=== PATIENT | female | born 1950 | race Caucasian/White ===

== ENCOUNTER 2023-11-10 20:45 | Emergency (ER) | payer MEDICARE, SELFPAY ==
--- NOTE | 2023-11-10 20:59 | ECG_ITS ---
Test Reason : CHEST PAIN Blood Pressure : / mmHG Vent. Rate : 055 BPM Atrial Rate : 055 BPM P-R Int : 208 ms QRS Dur : 112 ms QT Int : 484 ms P-R-T Axes : 032 -51 037 degrees QTc Int : 463 ms Sinus bradycardia Left anterior fascicular block Moderate voltage criteria for LVH, may be normal variant ( R in aVL , Ignacio product ) Nonspecific T wave abnormality Abnormal ECG No previous ECGs available Referred By: Generic ED Physician Electronically Signed By:Nicholas Bhagat
[2023-11-10 21:00] VITALS: BP 106/74; BP 108/65; PULSE 58; PULSE 80; RESP 16; TEMP 36.4; O2SAT 96; O2SAT 98; BMI 22.9
--- NOTE | 2023-11-10 21:04 | ED_ITS ---
HPI - Chest Pain General Chief Complaint: Chest Pain Stated Complaint: FROM SNF, CHEST PAIN XFEW HOURS Time Seen by Provider: 11/10/23 21:04 History of Present Illness HPI narrative: The patient is a 73-year-old woman who lives at [facility] dementia unit. The patient apparently complained of chest pain earlier and requested to come to the hospital. At the time that I evaluated the patient she told me that she really could not remember what was happening earlier. The patient has a history of dementia in his clearly poorly oriented. She could not tell me where she lives. She could not tell me how old she is. She currently has no chest pain. No shortness of breath. No abdominal pain. No headache. Related Data Home Medications Medication Instructions Recorded Confirmed amlodipine 5 mg tablet 5 mg PO DAILY 11/10/23 11/10/23 calcium carbonate 600 mg-vitamin 2 cap PO BID 11/10/23 11/10/23 D3 5 mcg (200 unit) capsule (Calcium 600 + D(3)) donepezil 10 mg tablet (Aricept) 10 mg PO BEDTIME 11/10/23 11/10/23 folic acid 1 mg tablet 1 mg PO DAILY 11/10/23 11/10/23 melatonin 3 mg tablet 3 mg PO BEDTIME PRN Insomnia 11/10/23 11/10/23 methotrexate sodium 2.5 mg tablet 10 mg PO TU 11/10/23 11/10/23 multivitamin with minerals 1 tab PO DAILY 11/10/23 11/10/23 polyethylene glycol 3350 17 gram 17 g PO DAILY PRN Constipation 11/10/23 11/10/23 oral powder packet sennosides 8.6 mg tablet (senna) 17.2 mg PO DAILY 11/10/23 11/10/23 white petrolatum 41 % topical 1 appl topical BID 11/10/23 11/10/23 ointment (Aquaphor Healing) Allergies Allergy/AdvReac Type Severity Reaction Status Date / Time No Known Allergies Allergy Verified 11/10/23 20:58 Review of Systems 2 Review of Systems: Yes all other systems are reviewed and are negative [facility] Social History Social History Advance Directives: Yes Advance Directives Information Provided: No Advance Directives on File: No Physical Exam 2 Vital Signs: Vital Signs: Last Vital Signs Temp 97.6 F 11/10/23 21:00 Pulse 58 11/10/23 21:00 Resp 16 11/10/23 21:00 BP 108/65 11/10/23 21:00 Pulse Ox 96 11/10/23 21:00 O2 Del Method Room Air 11/10/23 21:00 BMI result Body Mass Index 22.9 Const: Other: The patient is a 73-year-old female who lives at a local dementia unit. She is awake and alert. She is pleasant and cooperative. She is very poorly oriented and cannot tell me where she lives. She can not tell me her age. She does not seem in any distress. HEENT: Other: Symmetrical. Mucous membranes moist. Eyes: Other: Pupils are round equal, conjunctivae clear, extraocular movements intact Neck: Other: No JVD Resp: Effort & Inspection: normal respiratory effort Auscultation: clear to auscultation bilaterally Cardio: Rate: regular rate Rhythm: regular rhythm Heart sounds: S1 normal heart sound present and S2 normal heart sound present GI: Other: Soft and nontender Skin: Other: Skin is dry and unremarkable Neuro: Other: The patient is awake and alert. She is poorly oriented in a manner consistent with dementia. She is quite talkative. Her speech is clear. Her face is symmetrical. Eye movements intact. She moves her extremities symmetrically. Exam is nonfocal. Extrem: Other: No calf swelling or tenderness Medical Decision Making Medical Decision Making MDM Narrative: The patient is a 73-year-old female with a history of dementia who lives at a dementia unit at a [place] [facility]. She was sent to the emergency room because she had been complaining of chest pain. However once she was here she was not experiencing chest pain and she could not remember anything about her complaints. Clinically the patient looks well here. Her EKG shows sinus bradycardia without definite acute ischemic changes. Troponins are undetectable. Other labs are unremarkable. She was observed for several hours without any new complaints of chest pain or other significant symptoms. She was resting peacefully. Ultimately she was returned to her [place] [facility] [place] Lab Data 11/10/23 21:00 11/10/23 21:00 Labs: Lab Results 11/10/23 11/10/23 11/11/23 Range/Units 21:00 23:12 00:14 WBC 4.6 L (4.8-10.8) X10*3/uL RBC 3.89 L (4.20-5.50) X10*6/uL Hgb 12.5 (12.0-16.0) g/dl Hct 37.4 (37.0-47.0) % MCV 96.1 (80.0-98.0) fL MCH 32.1 (27.0-33.0) pg MCHC 33.4 (31.0-35.0) g/dl RDW 14.8 (11.0-16.0) % Plt Count 81 L (160-400) X10*3/uL MPV 12.6 H (9.4-12.3) fL Immature Gran % (Auto) 0.2 (0.0-0.4) % Neut % (Auto) 54.0 (45-73) % Lymph % (Auto) 28.5 (20-40) % [place] % (Auto) 12.5 H (2-11) % Eos % (Auto) 3.9 (0-4) % Baso % (Auto) 0.9 (0-2) % Lymph # (Auto) 1.3 (1.2-4.9) X10*3/uL [place] # (Auto) 0.6 (0.1-1.2) X10*3/uL Eos # (Auto) 0.2 (0.0-0.4) X10*3/uL Baso # (Auto) 0.0 (0.0-0.2) X10*3/uL Abs Immat Gran (auto) 0.01 (0.00-0.03) X10*3/uL Absolute Neuts (auto) 2.5 (2.0-8.3) x10*3/uL Absolute Nucleated RBC 0.000 (0.0-0.012) X10*3/uL Nucleated RBC % (auto) 0.0 (0.0-0.2) /100WBC Smear Tech's Comments VERIFIED Sodium 136 (135-145) mmol/L Potassium 4.8 (3.3-5.1) mmol/L Chloride 109 H (96-108) mmol/L Carbon Dioxide 20 L (22-29) mmol/L Anion Gap 12 (12-20) BUN 21 H (9-16) mg/dL Creatinine 0.94 (0.5-1.4) mg/dL Estim Creat Clear Calc 42.8 Estimated GFR 58 Random Glucose 92 (60-115) mg/dL Calcium 8.7 (8.4-10.2) mg/dL Troponin I High Sens 7.3 6.3 (<3.5-17.0) ng/L Influenza Type A (PCR) NEGATIVE (Negative) Influenza Type B (PCR) NEGATIVE (Negative) RSV RNA Qual (PCR) NEGATIVE (Negative) SARS-CoV-2 RNA (RT-PCR) NEGATIVE (Negative) Independent Interpretation I performed an independent interpretation of an: EKG Interpretation: EKG at 21:03 shows sinus bradycardia at 55 beats per minute. There is a left anterior fascicular block. No definite acute ischemic changes. Discharge Plan Discharge Clinical Impression: Chest pain, Dementia Patient Disposition: [facility] Additional Instructions: Testing in the emergency room reveals no signs of heart attack or other concerning process. No explanation for the patient's chest pain was apparent. No dangerous process identified. Please continue regular medications. Please follow up with her regular doctor. Return to the emergency room if worse. Prescriptions: No Action sennosides [senna] 8.6 mg Tablet 17.2 mg PO DAILY polyethylene glycol 3350 17 gram Powder In Packet 17 g PO DAILY PRN (Reason: Constipation) donepezil [Aricept] 10 mg Tablet 10 mg PO BEDTIME melatonin 3 mg Tablet 3 mg PO BEDTIME PRN (Reason: Insomnia) amlodipine 5 mg Tablet 5 mg PO DAILY methotrexate sodium 2.5 mg Tablet 10 mg PO TU folic acid 1 mg Tablet 1 mg PO DAILY multivitamin with minerals Tablet 1 tab PO DAILY Aquaphor Healing 41 % Ointment 1 appl TOPICAL BID Calcium 600 + D(3) 600 mg-5 mcg (200 unit) Capsule 2 cap PO BID Referrals: GERALDINE MENDEZ [Primary Care Provider] - (Chest pain, dementia)
[2023-11-10 21:05] LABS: Basophils Percent Auto 0.9 % (0-2); Eosinophils Absolute Auto 0.2 X10*3/uL (0.0-0.4); Eosinophils Percent Auto 3.9 % (0-4); Hematocrit 37.4 % (37.0-47.0); Hemoglobin 12.5 g/dl (12.0-16.0); Imm Gran Abs Auto 0.01 X10*3/uL (0.00-0.03); Imm Gran Pct Auto 0.2 % (0.0-0.4); Lymphocytes Absolute Auto 1.3 X10*3/uL (1.2-4.9); Lymphocytes Percent Auto 28.5 % (20-40); Mean Corpuscular HGB Conc 33.4 g/dl (31.0-35.0); Mean Corpuscular Hemoglobin 32.1 pg (27.0-33.0); Mean Corpuscular Volume 96.1 fL (80.0-98.0); Mean Platelet Volume 12.6 fL (9.4-12.3); Monocytes Absolute Auto 0.6 X10*3/uL (0.1-1.2); Monocytes Percent Auto 12.5 % (2-11); Neutrophils Absolute Auto 2.5 x10*3/uL (2.0-8.3); Red Blood Count 3.89 X10*6/uL (4.20-5.50); Red Cell Distribution Width 14.8 % (11.0-16.0); White Blood Count 4.6 X10*3/uL (4.8-10.8)
[2023-11-10 21:06] LABS: MANUAL DIFF FLAG SCAN; Platelet Count 81 X10*3/uL (160-400)
--- NOTE | 2023-11-10 21:16 | PHA.MEDREC ---
Pharmacy Consult ? Medication Reconciliation Pharmacy has completed the medication reconciliation. Patient from [facility] with med list. Nancy Rubio, NelsyD
[2023-11-10 21:20] LABS: Anion Gap 12 (12-20); Blood Urea Nitrogen 21 mg/dL (9-16); Calcium 8.7 mg/dL (8.4-10.2); Carbon Dioxide 20 mmol/L (22-29); Chloride 109 mmol/L (96-108); Creatinine Clr Calc Pharmacy 42.8; Estimated Glomerular Filt Rate 58; Glucose Random 92 mg/dL (60-115); Potassium 4.8 mmol/L (3.3-5.1); Sodium 136 mmol/L (135-145)
[2023-11-10 21:27] LABS: Troponin-I High Sensitivity 7.3 ng/L (<3.5-17.0)
[2023-11-10 21:40] LABS: SLIDE REVIEW VERIFIED
[2023-11-10 23:54] LABS: Influenza A PCR NEGATIVE (Negative); Influenza B PCR NEGATIVE (Negative); Resp Syncy Virus RNA Qual PCR NEGATIVE (Negative); SARS COV2 PCR INHOUSE NEGATIVE (Negative)
[2023-11-11 00:39] LABS: Troponin-I High Sensitivity 6.3 ng/L (<3.5-17.0)
--- NOTE | 2023-11-11 02:20 | MHC.EDTECH ---
CALL OUT TO [facility] AT 0220 TO BOOK TRANSPORT FOR PT BACK TO [facility], ESTIMATED ETA GIVEN WAS 0250
[2023-11-11 02:55] VITALS: BP 136/73; PULSE 52; RESP 14; TEMP 36.4; O2SAT 96
== END 2023-11-11 02:00 | disposition skilled nursing facility (03) ==
PROVIDERS: Emergency Provider Emergency Medicine; PCP Emergency Medicine
DX: R07.9 Chest pain, unspecified (principal); F03.90 Unspecified dementia, unspecified severity, without behavioral disturbance, psychotic disturbance, mood disturbance, and anxiety; Z11.52 Encounter for screening for COVID-19; Z20.828 Contact with and (suspected) exposure to other viral communicable diseases
CPT/HCPCS: 0241U; 36415; 80048; 84484; 85025; 93005; 99284

== ENCOUNTER → 2023-11-10 20:59 | Outpatient (BNV) | payer MEDICARE, SELFPAY | PROVIDERS: Emergency Provider Emergency Medicine; PCP Emergency Medicine; Visit Provider Internal Medicine Cardiovascular Disease | DX: R00.1 Bradycardia, unspecified (principal) | CPT/HCPCS: 93010 ==

== ENCOUNTER 2024-02-08 13:22 | Inpatient (IN) | payer MEDICARE, SELFPAY ==
--- NOTE | ~2024-02-08 | XR_ITS ---
EXAMINATION: XR CHEST CLINICAL INFORMATION: Weakness COMPARISON: None available. TECHNIQUE: Frontal view of the chest was obtained. FINDINGS: There is slight prominence of the right hilar area likely reflects prominent central pulmonary vasculature. Similar but less prominent prominence of the left Lungs otherwise clear. Cardiomediastinal silhouette normal. Surgical clips in the right upper quadrant. Bone and soft tissues otherwise unremarkable XR/XR chest 1V IMPRESSION: Prominence of the right hilar area likely reflects prominent central pulmonary vasculature. Similar but less prominent prominence of the left lung. Findings most likely reflects mild pulmonary vascular congestion. Cannot exclude right infrahilar mass or consolidation consider repeat radiograph with PA and lateral radiograph to further evaluate
--- NOTE | 2024-02-08 13:32 | ED_ITS ---
HPI - General Adult General Chief complaint: Altered Mental Status Stated complaint: LETHARGY S/P GI BUG PER EMS Time Seen by Provider: 02/08/24 13:32 History of Present Illness ED Provider: Dandy WHITING narrative: The patient is a 74-year-old female who lives on the dementia unit of a local skilled nursing. Apparently she had 3 or 4 days of diarrhea that ended 2 or 3 days ago. Since that time she has been much less alert than usual. Facility has been trying to manage this for a couple of days. She would lab work 2 days ago that showed a mildly elevated sodium. She was given an IV and was given IV fluids. Today she was not getting better and so she was sent to the emergency room. There is no report of any fever. Related Data Home Medications ?Medication ?Instructions ?Recorded ?Confirmed amlodipine 5 mg tablet 5 mg PO DAILY@0800 11/10/23 02/08/24 calcium carbonate 600 mg-vitamin 2 cap PO BID 11/10/23 02/08/24 D3 5 mcg (200 unit) capsule (Calcium 600 + D(3)) donepezil 10 mg tablet (Aricept) 10 mg PO BEDTIME 11/10/23 02/08/24 folic acid 1 mg tablet 1 mg PO SUMOWETHFRSA@0800 11/10/23 02/08/24 melatonin 3 mg tablet 3 mg PO BEDTIME PRN Insomnia 11/10/23 02/08/24 methotrexate sodium 2.5 mg tablet 10 mg PO TU@0800 11/10/23 02/08/24 multivitamin with minerals 1 tab PO DAILY@0800 11/10/23 02/08/24 polyethylene glycol 3350 17 gram 17 g PO DAILY PRN Constipation 11/10/23 02/08/24 oral powder packet sennosides 8.6 mg tablet (senna) 17.2 mg PO DAILY@0800 11/10/23 02/08/24 white petrolatum 41 % topical 1 appl topical BID PRN itchyness 11/10/23 02/08/24 ointment (Aquaphor Healing) acetaminophen 325 mg tablet 650 mg PO DAILY 02/08/24 02/08/24 bisacodyl 10 mg rectal suppository 10 mg AR DAILY PRN milk of 02/08/24 02/08/24 magnesia not effective calcitriol 3 mcg/gram topical 1 appl topical BID Psoriasis 02/08/24 02/08/24 ointment hydrocortisone 2.5 % topical 1 appl topical DAILY PRN psoriasis 02/08/24 02/08/24 ointment loperamide 2 mg capsule 2 mg PO Q6H PRN Diarrhea 02/08/24 02/08/24 magnesium hydroxide 400 mg/5 mL 30 ml PO DAILY PRN Constipation/ 02/08/24 02/08/24 oral suspension (Milk of Magnesia) No Bm in3 days sodium phosphates 19 gram-7 118 ml AR DAILY PRN Ducolax not 02/08/24 02/08/24 gram/118 mL enema (Fleet Enema) effective trazodone 50 mg tablet 25 mg PO BID PRN Anxiety 02/08/24 02/08/24 trazodone 50 mg tablet 25 mg PO TID@0800,1400,199902/08/24 02/08/24 Allergies Allergy/AdvReac Type Severity Reaction Status Date / Time No Known Allergies Allergy Verified 02/08/24 13:38 Review of Systems 2 Review of Systems: Yes Unobtainable due to mental status [facility] Social History Social History Patient Tobacco Use Status: Tobacco use Unknown Smoked in Last 30 Days: No Use of substances other than those prescribed or required for medical reasons: No Advance Directives: No Nutrition Risks: Acute nausea or vomiting x1 week Physical Exam ED Vital Signs: Vital Signs - 24 hr 02/08/24 13:34 Temperature 99.6 F Pulse Rate 80 Respiratory Rate 16 Blood Pressure 151/69 H Pulse Oximetry 97 Oxygen Delivery Method Room Air BMI result Body Mass Index 23.4 Const Other: The patient is a chronically ill-appearing 74-year-old woman who seems very withdrawn. She responds to loud verbal stimuli. She seems demented. She does not seem in any respiratory distress. She does not seem in pain. HENMT Other: No facial asymmetry. Mucous membranes slightly dry. Eyes Other: Pupils are round equal, conjunctivae clear Neck Other: Neck is supple Resp Effort & Inspection: normal respiratory effort Auscultation: clear to auscultation bilaterally Cardio Rate: regular rate Rhythm: regular rhythm Heart sounds: S1 normal heart sound present and S2 normal heart sound present GI Other: Abdomen is soft and without apparent tenderness. Skin Other: Skin is dry Neuro Other: The patient seems somnolent. Pupils are round equal. She grimaces to noxious stimuli. She is not verbal. She has symmetrical tone Extrem Other: No pitting edema. Medications Administered Generic Name Dose Route Start Last Admin Trade Name Freq PRN Reason Stop Dose Admin Enoxaparin Sodium 40 mg 02/08/24 18:00 02/08/24 19:40 Enoxaparin Sodium 40 Mg/0.4 Ml Syringe SUBCUT 40 mg Q24H YOUSIF Administration Dextrose 1,000 mls @ 125 mls/hr 02/08/24 16:30 02/08/24 16:45 D5w IVCONT 125 mls/hr .Q8H YOUSIF Administration Discontinued Medications Generic Name Dose Route Start Last Admin Trade Name Freq PRN Reason Stop Dose Admin Sodium Chloride 1,000 mls @ 999 mls/hr 02/08/24 14:30 02/08/24 17:38 Ns IV 02/08/24 15:30 Infused .Q1H1M YOUSIF Infusion Medical Decision Making Medical Decision Making [facility] Narrative: The patient is a 74-year-old woman who lives at a dementia unit. I spoke to a nurse on the unit who told me that there is a MOLST form indicating the patient is DNR/DNI that they would be faxing over. Her labs show an elevated hemoglobin consistent with dehydration and hemo concentration. Sodium is elevated at 162 which I suspect is secondary to dehydration. The patient's renal function is also consistent with acute dehydration. The patient was given a L of normal saline in the emergency department and will be admitted to the hospitalist service for further management. She has an abnormal troponin that I think is a stress reaction rather than an acute coronary syndrome. Lab Data 02/08/24 14:16 02/08/24 14:16 Labs: Lab Results 02/08/24 02/08/24 Range/Units 14:16 14:19 WBC 7.6 (4.8-10.8) X10*3/uL RBC 4.81 D (4.20-5.50) X10*6/uL Hgb 15.9 D (12.0-16.0) g/dl Hct 48.5 H D (37.0-47.0) % MCV 100.8 H (80.0-98.0) fL MCH 33.1 H (27.0-33.0) pg MCHC 32.8 (31.0-35.0) g/dl RDW 15.9 (11.0-16.0) % Plt Count 65 L (160-400) X10*3/uL MPV 12.4 H (9.4-12.3) fL Immature Gran % (Auto) 0.8 H (0.0-0.4) % Neut % (Auto) 71.5 (45-73) % Lymph % (Auto) 18.1 L (20-40) % [place] % (Auto) 8.5 (2-11) % Eos % (Auto) 0.7 (0-4) % Baso % (Auto) 0.4 (0-2) % Lymph # (Auto) 1.4 (1.2-4.9) X10*3/uL [place] # (Auto) 0.6 (0.1-1.2) X10*3/uL Eos # (Auto) 0.1 (0.0-0.4) X10*3/uL Baso # (Auto) 0.0 (0.0-0.2) X10*3/uL Abs Immat Gran (auto) 0.06 H (0.00-0.03) X10*3/uL Absolute Neuts (auto) 5.4 (2.0-8.3) x10*3/uL Absolute Nucleated RBC 0.000 (0.0-0.012) X10*3/uL Nucleated RBC % (auto) 0.0 (0.0-0.2) /100WBC VBG pH 7.50 H (7.32-7.43) VBG pCO2 26 mmHg VBG pO2 73 mmHg VBG HCO3 21 L (22-26) mmol/L VBG O2 Saturation 94.0 % VBG Base Excess -0.4 mmol/L Sodium 162 H* (135-145) mmol/L Potassium 3.7 D (3.3-5.1) mmol/L Chloride 132 H D (96-108) mmol/L Carbon Dioxide 20 L (22-29) mmol/L Anion Gap 14 (12-20) BUN 29 H (9-16) mg/dL Creatinine 1.24 (0.5-1.4) mg/dL Estim Creat Clear Calc 33.3 Estimated GFR 42 Random Glucose 97 (60-115) mg/dL Calcium 9.6 D (8.4-10.2) mg/dL Magnesium 2.0 (1.6-2.6) mg/dL Total Bilirubin 2.4 H (0.0-1.0) mg/dL Direct Bilirubin 0.7 H (0.0-0.5) mg/dL AST 45 H (5-31) U/L ALT 30 (0-31) U/L Alkaline Phosphatase 76 (39-117) U/L Troponin I High Sens 94.1 H* D (<3.5-17.0) ng/L C-Reactive Protein 0.26 (< or = 0.50) mg/dL B-Natriuretic Peptide 187 H (<100) pg/mL Total Protein 7.8 (6.5-8.0) g/dL Albumin 2.6 L (3.5-5.0) g/dL Lipase 54 (8-78) U/L Influenza Type A (PCR) NEGATIVE (Negative) Influenza Type B (PCR) NEGATIVE (Negative) RSV RNA Qual (PCR) NEGATIVE (Negative) SARS-CoV-2 RNA (RT-PCR) NEGATIVE (Negative) Discharge Plan Discharge Clinical Impression: Hypernatremia, Dementia, Acute dehydration Patient Disposition: Admitted As Inpatient Interventions: Admission Worksheet (ED) Last Done: 02/08/24 17:53 Discharge Date/Time: 02/08/24 20:25
[2024-02-08 13:34] VITALS: BP 146/74; BP 151/69; PULSE 70; PULSE 80; RESP 16; TEMP 37.6; O2SAT 97; BMI 23.4
--- NOTE | 2024-02-08 13:43 | ECG_ITS ---
Test Reason : HYPOKALEMIA Blood Pressure : / mmHG Vent. Rate : 079 BPM Atrial Rate : 079 BPM P-R Int : 144 ms QRS Dur : 096 ms QT Int : 388 ms P-R-T Axes : 004 -67 107 degrees QTc Int : 444 ms Normal sinus rhythm Left anterior fascicular block Left ventricular hypertrophy with repolarization abnormality ( R in aVL , Ignacio product , Romhilt-Krause ) Cannot rule out Septal infarct , age undetermined Abnormal ECG When compared with ECG of 10-NOV-2023 21:03, Minimal criteria for Septal infarct are now Present T wave inversion now evident in Anterolateral leads Referred By: Delfino Dorman Electronically Signed By:NEW MCGHEE MD
[2024-02-08 14:22] LABS: MANUAL DIFF FLAG NO
[2024-02-08 14:24] LABS: Basophils Percent Auto 0.4 % (0-2); Eosinophils Absolute Auto 0.1 X10*3/uL (0.0-0.4); Eosinophils Percent Auto 0.7 % (0-4); Hematocrit 48.5 % (37.0-47.0); Hemoglobin 15.9 g/dl (12.0-16.0); Imm Gran Abs Auto 0.06 X10*3/uL (0.00-0.03); Imm Gran Pct Auto 0.8 % (0.0-0.4); Lymphocytes Absolute Auto 1.4 X10*3/uL (1.2-4.9); Lymphocytes Percent Auto 18.1 % (20-40); Mean Corpuscular HGB Conc 32.8 g/dl (31.0-35.0); Mean Corpuscular Hemoglobin 33.1 pg (27.0-33.0); Mean Corpuscular Volume 100.8 fL (80.0-98.0); Mean Platelet Volume 12.4 fL (9.4-12.3); Monocytes Absolute Auto 0.6 X10*3/uL (0.1-1.2); Monocytes Percent Auto 8.5 % (2-11); Neutrophils Absolute Auto 5.4 x10*3/uL (2.0-8.3); Neutrophils Percent Auto 71.5 % (45-73); Platelet Count 65 X10*3/uL (160-400); Red Blood Count 4.81 X10*6/uL (4.20-5.50); Red Cell Distribution Width 15.9 % (11.0-16.0); White Blood Count 7.6 X10*3/uL (4.8-10.8)
[2024-02-08 14:26] LABS: Venous Blood Gas Refer to POC result
[2024-02-08 14:27] LABS: VBG Base Excess -0.4 mmol/L; VBG HCO3 21 mmol/L (22-26); VBG pCO2 26 mmHg; VBG pO2 73 mmHg
[2024-02-08 14:40] LABS: Alanine Aminotransferase 30 U/L (0-31); Albumin Level 2.6 g/dL (3.5-5.0); Alkaline Phosphatase 76 U/L (39-117); Aspartate Amino Transferase 45 U/L (5-31); Bilirubin Direct 0.7 mg/dL (0.0-0.5); Bilirubin Total 2.4 mg/dL (0.0-1.0); Blood Urea Nitrogen 29 mg/dL (9-16); C Reactive Protein 0.26 mg/dL (< or = 0.50); Calcium 9.6 mg/dL (8.4-10.2); Creatinine Clr Calc Pharmacy 33.3; Estimated Glomerular Filt Rate 42; Glucose Random 97 mg/dL (60-115); Lipase 54 U/L (8-78); Total Protein 7.8 g/dL (6.5-8.0)
[2024-02-08 14:44] LABS: B Type Natriuretic Peptide 187 pg/mL (<100)
[2024-02-08] MEDS: 0.9 % Sodium Chloride 1,000 ML 999 ML IV (14:51)
[2024-02-08 14:55] LABS: Anion Gap 14 (12-20); Carbon Dioxide 20 mmol/L (22-29); Chloride 132 mmol/L (96-108); Potassium 3.7 mmol/L (3.3-5.1); Sodium 162 mmol/L (135-145)
[2024-02-08 14:57] LABS: Troponin-I High Sensitivity 94.1 ng/L (<3.5-17.0)
[2024-02-08 14:59] LABS: Influenza A PCR NEGATIVE (Negative); Influenza B PCR NEGATIVE (Negative); Resp Syncy Virus RNA Qual PCR NEGATIVE (Negative); SARS COV2 PCR INHOUSE NEGATIVE (Negative)
[2024-02-08 16:13] VITALS: BP 157/86; PULSE 84; RESP 19; O2SAT 98
--- NOTE | 2024-02-08 16:18 | PM.IMHP ---
History of Present Illness Date of Service: 02/08/24 Chief Complaint: Mental status changes All information gleaned from long-term transfer sheet. 74-year-old female local resident of [facility] with a history of dementia presents after 3 or 4 days of diarrhea that stopped approximately 2 days ago. Over that time she became more confused and ultimately lethargic prompting transfer into [facility]. Initial labs significant for sodium of 162 and a chloride of 132. She received a L of normal saline in the emergency room and request for admission was undertaken. Review of Systems Review of Systems: Unable to obtain [facility] Social History Smoked in Last 30 Days: No Use of substances other than those prescribed or required for medical reasons: No Advance Directives: No Meds Allergies Allergy/AdvReac Type Severity Reaction Status Date / Time No Known Allergies Allergy Verified 02/08/24 13:38 Active Medications: Current Medications Acetaminophen (Acetaminophen 325 Mg Tablet) 650 mg PO Q6H PRN PRN Reason: Pain, Mild (Pain Scale 1-3), fever or headache Calcium Carbonate (Calcium Carbonate 750 Mg Tab.Chew) 750 mg PO Q4H PRN PRN Reason: Heartburn Enoxaparin Sodium (Enoxaparin Sodium 40 Mg/0.4 Ml Syringe) 40 mg SUBCUT Q24H [facility] Magnesium Hydroxide (Milk Of Magnesia 30 Ml Oral.Susp) 30 ml PO DAILY PRN PRN Reason: Constipation Melatonin (Melatonin 3 Mg Tablet) 6 mg PO BEDTIME PRN PRN Reason: Insomnia Ondansetron HCl (Ondansetron Hcl 4 Mg/2 Ml Vial) 4 mg IVPUSH Q8H PRN PRN Reason: Nausea and Vomiting Sodium Chloride (0.9 % Sodium Chloride Flush 3 Ml Syringe) 3 ml IVFLUSH QSHIFT [facility] Home Medications ?Medication ?Instructions ?Recorded ?Confirmed ?Last Taken ?Type amlodipine 5 mg tablet 5 mg PO DAILY 11/10/23 11/10/23 Unknown History calcium carbonate 600 mg-vitamin 2 cap PO BID 11/10/23 11/10/23 Unknown History D3 5 mcg (200 unit) capsule (Calcium 600 + D(3)) donepezil 10 mg tablet (Aricept) 10 mg PO BEDTIME 11/10/23 11/10/23 Unknown History folic acid 1 mg tablet 1 mg PO DAILY 11/10/23 11/10/23 Unknown History melatonin 3 mg tablet 3 mg PO BEDTIME PRN Insomnia 11/10/23 11/10/23 Unknown History methotrexate sodium 2.5 mg tablet 10 mg PO TU 11/10/23 11/10/23 Unknown History multivitamin with minerals 1 tab PO DAILY 11/10/23 11/10/23 Unknown History polyethylene glycol 3350 17 gram 17 g PO DAILY PRN Constipation 11/10/23 11/10/23 Unknown History oral powder packet sennosides 8.6 mg tablet (senna) 17.2 mg PO DAILY 11/10/23 11/10/23 Unknown History white petrolatum 41 % topical 1 appl topical BID 11/10/23 11/10/23 Unknown History ointment (Aquaphor Healing) Physical Exam Vital Signs and Narrative: Vital Signs: Last Vital Signs Temp 99.6 F 02/08/24 13:34 Pulse 84 02/08/24 16:13 Resp 19 02/08/24 16:13 BP 157/86 H 02/08/24 16:13 Pulse Ox 98 02/08/24 16:13 O2 Del Method Room Air 02/08/24 16:13 BMI result Body Mass Index 23.4 Const: Other: Somnolent; response to mild stimuli Resp: Other: Clear to auscultation bilaterally no rales rhonchi or wheezes Cardio: Other: No S4; positive S1-S2; no S3 murmurs rubs or gallops GI: Other: Soft nontender nondistended normoactive bowel sounds Extrem: Other: No edema bilaterally Results Labs 02/08/24 14:16 02/08/24 14:16 Labs: Laboratory Results - last 24 hr 02/08/24 02/08/24 14:16 14:19 MCV 100.8 H MCH 33.1 H MCHC 32.8 RDW 15.9 Plt Count 65 L MPV 12.4 H Immature Gran % (Auto) 0.8 H Neut % (Auto) 71.5 Lymph % (Auto) 18.1 L [place] % (Auto) 8.5 Eos % (Auto) 0.7 Baso % (Auto) 0.4 Lymph # (Auto) 1.4 [place] # (Auto) 0.6 Eos # (Auto) 0.1 Baso # (Auto) 0.0 Abs Immat Gran (auto) 0.06 H Absolute Neuts (auto) 5.4 Absolute Nucleated RBC 0.000 Nucleated RBC % (auto) 0.0 VBG pH 7.50 H VBG pCO2 26 VBG pO2 73 VBG HCO3 21 L VBG O2 Saturation 94.0 VBG Base Excess -0.4 Anion Gap 14 Estim Creat Clear Calc 33.3 Estimated GFR 42 Random Glucose 97 Calcium 9.6 D Magnesium 2.0 Total Bilirubin 2.4 H Direct Bilirubin 0.7 H AST 45 H ALT 30 Alkaline Phosphatase 76 Troponin I High Sens 94.1 H* D C-Reactive Protein 0.26 B-Natriuretic Peptide 187 H Total Protein 7.8 Albumin 2.6 L Lipase 54 Influenza Type A (PCR) NEGATIVE Influenza Type B (PCR) NEGATIVE RSV RNA Qual (PCR) NEGATIVE SARS-CoV-2 RNA (RT-PCR) NEGATIVE Imaging Radiologist's Impressions: Impressions Chest X-Ray 02/08/24 14:47 IMPRESSION: Prominence of the right hilar area likely reflects prominent central pulmonary vasculature. Similar but less prominent prominence of the left lung. Findings most likely reflects mild pulmonary vascular congestion. Cannot exclude right infrahilar mass or consolidation consider repeat radiograph with PA and lateral radiograph to further evaluate Assessment and Plan (1) Hypernatremia: Status: Acute (2) Dementia: Qualifiers: Dementia type: unspecified type Dementia severity: moderate Dementia behavioral or psychological symptom: unspecified whether behavioral, psychotic, or mood disturbance or anxiety Qualified Code(s): F03.B0 - Unspecified dementia, moderate, without behavioral disturbance, psychotic disturbance, mood disturbance, and anxiety Status: Inactive Plan 74-year-old female presents from local SNF with mental status changes that was preceded by several days of diarrhea. Was given 1 L of fluid at sniff but mental status did not improve and transferred to [facility]. Admission labs demonstrated severe hypernatremia . 1. Metabolic encephalopathy secondary to hypernatremia -free water deficit calculated to approximately 4 L. . . Given 1 L normal saline in ER -D5W at 01:25 an hour -check BNP at 21:00 today -keep NPO until mentation improves -follow renals/divalents 2. Dementia -conservative therapies -restart medication when clinically appropriate DNR DNI Lovenox Requires at least 2 midnights going forward of inpatient stay for free water repletion to correct hypernatremia and reverse metabolic encephalopathy. This can not be achieved a lesser acute setting Quality Stroke Does the patient have a stroke diagnosis?: No VTE Prior VTE?: No VTE Risk Level:: Medical - moderate - high VTE Device Contraindication: Treatment Not Indicated VTE Drug Contraindication: N/A - Med Ordered
[2024-02-08] MEDS: Dextrose 5 % 1,000 ML 125 ML IVCONT ×2 (16:45→23:41)
--- NOTE | 2024-02-08 17:08 | PC.NURSE ---
Pt BIBA from [facility] for n/v/d from norovirus outbreak. As of 02/03 n/v/d has resolved but pt has become very lethargic and had a low potassium. Pt responds to verbal stimuli, respirations even and unlabored, abdomen soft and non tender, S1 and S2 auscultated. No straight cath done per MD yonas ruff due to pt hx of dementia/confusion. Pt nsr on the cardiac specialist, resting in bed, call callahan within reach.
[2024-02-08 17:29] VITALS: BP 160/82; PULSE 78; RESP 18; O2SAT 97
--- NOTE | 2024-02-08 17:39 | PC.NURSE ---
MD Mitchell at bedside doing admission assessment. Recommended holding straight cath for pt dignity
--- NOTE | 2024-02-08 17:51 | PHA.MEDREC ---
Pharmacy Consult ? Medication Reconciliation Pharmacy has completed the medication reconciliation. Confirmed medications with list provided by Danay Gupta.
[2024-02-08 18:06] LABS: Troponin-I High Sensitivity 115.6 ng/L (<3.5-17.0)
[2024-02-08] MEDS: Enoxaparin Sodium 40 MG/0.4 ML SYRINGE SUBCUT (19:40)
[2024-02-08 20:43] VITALS: BP 182/88; PULSE 84; RESP 18; TEMP 36.1; O2SAT 97
[2024-02-08 21:18] VITALS: BMI 21.1
[2024-02-08 22:05] LABS: Troponin-I High Sensitivity 99.9 ng/L (<3.5-17.0)
[2024-02-08 23:19] VITALS: BP 186/97; PULSE 76; RESP 18; O2SAT 96
[2024-02-09 04:00] VITALS: BP 179/92; PULSE 68; RESP 16; TEMP 36; O2SAT 96
[2024-02-09 06:14] LABS: MANUAL DIFF FLAG NO
[2024-02-09 06:34] LABS: Basophils Percent Auto 0.5 % (0-2); Eosinophils Absolute Auto 0.1 X10*3/uL (0.0-0.4); Eosinophils Percent Auto 1.8 % (0-4); Hematocrit 43.7 % (37.0-47.0); Hemoglobin 14.3 g/dl (12.0-16.0); Imm Gran Abs Auto 0.03 X10*3/uL (0.00-0.03); Imm Gran Pct Auto 0.5 % (0.0-0.4); Lymphocytes Absolute Auto 1.2 X10*3/uL (1.2-4.9); Lymphocytes Percent Auto 19.4 % (20-40); Mean Corpuscular HGB Conc 32.7 g/dl (31.0-35.0); Mean Corpuscular Hemoglobin 33.2 pg (27.0-33.0); Mean Corpuscular Volume 101.4 fL (80.0-98.0); Mean Platelet Volume 12.3 fL (9.4-12.3); Monocytes Absolute Auto 0.5 X10*3/uL (0.1-1.2); Monocytes Percent Auto 8.4 % (2-11); NRBC Pct Auto 0.3 /100WBC (0.0-0.2); Neutrophils Absolute Auto 4.2 x10*3/uL (2.0-8.3); Neutrophils Percent Auto 69.4 % (45-73); Platelet Count 59 X10*3/uL (160-400); Red Blood Count 4.31 X10*6/uL (4.20-5.50); Red Cell Distribution Width 15.5 % (11.0-16.0)
[2024-02-09 06:47] LABS: Alanine Aminotransferase 29 U/L (0-31); Albumin Level 2.2 g/dL (3.5-5.0); Alkaline Phosphatase 66 U/L (39-117); Anion Gap 10 (12-20); Aspartate Amino Transferase 43 U/L (5-31); Bilirubin Total 2.3 mg/dL (0.0-1.0); Blood Urea Nitrogen 20 mg/dL (9-16); Calcium 8.7 mg/dL (8.4-10.2); Carbon Dioxide 19 mmol/L (22-29); Chloride 131 mmol/L (96-108); Creatinine Clr Calc Pharmacy 42.6; Estimated Glomerular Filt Rate 56; Glucose Random 124 mg/dL (60-115); Potassium 3.1 mmol/L (3.3-5.1); Sodium 157 mmol/L (135-145)
[2024-02-09 07:38] VITALS: BP 167/85; PULSE 84; RESP 17; TEMP 36.5; O2SAT 93
[2024-02-09] MEDS: KCl 20 mEq in 5 % Dextrose 20 MEQ/1,000 ML IV.SOLN 125 MEQ IVCONT ×2 (07:47→16:34)
--- OUTSIDE RECORDS SUMMARY | 2024-02-09 08:26 | XMS_ITS | Continuity of Care Document ---
Author Organization [facility] ter Address [address] [place] [id number]- Care Team Providers Care Field Artillery Targeting Technician Name Role Phone [place]-Rupesh LEROY, Joy Primary Care Physicia n Encounter [facility] Date(s): 08/21/19 - 08/21/[address] [address] Attending Physician: Tino Hyatt MD Allergies, Adverse Reactions, Alerts Substance Reaction Severity Status penicillins hives Active Cardizem Active PHENobarbital Sodium hives Active Immunizations Given and Recorded Vaccine Date Status Refusal Reason pneumococcal 23-valent vaccine 07/02/12 Given influenza virus vaccine, inactivated 07/02/12 Give n Medications aspirin 81 mg oral tablet 1 tablet = 81 mg, By Mouth, Daily, # 30 tablet, 0 Refills, Maintenance, Tablet Start Date: 06/30/12 Status: Ordered Calcium Citrate 315 mg + Vitamin D 250IU Tablet 2 tablet, By Mouth, 2 times a day, 0 Refills, Maintenance Start Date: 07/02/12 Status: Ordered Calcium Citrate Tablet Maintenance, 06/30/12 16:48:44 Start Date: 06/30/12 Status: Ordered folic acid 1 mg oral tablet 1 tablet = 1 mg, By Mouth, Daily, # 30 tablet, 0 Refills, Maintenance, Tablet Start Date: 06/30/12 Status: Ordered Hydrochlorothiazide = 25 mg, By Mouth, Daily, 0 Refills, Maintenance Start Date: 06/30/12 Status: Ordered Meclizine By Mouth, 3 times a day, 0 Refills, Maintenance Start Date: 10/15/12 Status: Ordered Motrin Tablet 800 mg, By Mouth, 4 times a day, PRN, Maintenance, Pain , Mild, 11/18/12 14:17:52 Start Date: 07/02/12 Status: Ordered pantoprazole 40 mg oral delayed release tablet 1 tablet = 40 mg, By Mouth, Daily, # 30 tablet, 0 Refills, Maintenance, 01/16/19 11:29:03 EDT, EC Tablet Start Date: 01/16/19 Status: Ordered predniSONE 5 mg oral tablet See Instructions, 1 tablet By Mouth 2 times a day for Will need to follow with Dr. Washburn at [facility] for taper with food or milk, # 60 tablet, 0 Refills, Maintenance, 01/16/19 11:27:33 EDT, Tablet Start Date: 01/16/19 Status: Ordered Vitamin D3 1000 intl units oral capsule 1 capsule = 1,000 International_Units, By Mouth, Daily, # 100 capsule, 0 Refills, Maintenance, Capsule Start Date: 06/30/12 Status: Ordered Zyrtec 10 mg oral tablet 1 tablet = 10 mg, By Mouth, Daily, # 30 tablet, 0 Refills, Maintenance, Tablet Start Date: 06/30/12 Status: Ordered Problem List Condition Effective Dates Status Health Status Inform ant Aneurysm(Confirmed) Active Pain(Confirmed) Active
--- OUTSIDE RECORDS SUMMARY | 2024-02-09 08:26 | XMS_ITS | Continuity of Care Document ---
Author Organization [facility] ter Address [address] [place] [id number]- Care Team Providers Care Waiter/Waitress Bar Name Role Phone Not on Staff, PCP Primary Care Physician Unavail able Encounter [facility] Date(s): 02/18/23 - 02/19/[address] [address]- Encounter Diagnosis Altered mental state(Final) - 02/19/23 Discharge Disposition: A-D/C Home Attending Physician: Tayler Adler DO Admitting Physician: Tayler Adler DO Referring Physician: Not on Staff, Referring MD Allergies, Adverse Reactions, Alerts Substance Reaction [...] 06/30/12 16:48:44 Start Date: 06/30/12 Status: Ordered Eliquis Starter Pack 5 mg oral tablet 2 tablet = 10 mg, By Mouth, 2 times a day, followed by 1 tablet by mouth twice daily for 23 days, #74 tablet, 0 Refills, Maintenance, 11/13/19 20:58:00 EDT Start Date: 11/13/19 Stop Date: 11/20/19 Status: Ordered folic acid 1 mg oral [...] a day, PRN, Maintenance, Pain , Mild, 07/02/12 14:17:52 Start Date: 07/02/12 Status: Ordered pantoprazole [...] Date: 06/30/12 Status: Ordered Problem List Condition Confirmation Course Effective Dates Status Health St atus Informant Aneurysm Confirmed Active Pain Confirmed Active Results Radiology Reports * Exam Date Time Procedure Performing Provider Status 02/19/23 12:17 AM Chest 2 Views Frontal and Lat Corey Husain; Auth (Verified) Notes: (Chest 2 Views Frontal and Lat) Reason For Exam: Shortness of Breath, Fever;Other: RESULT: Chest 2 Views Frontal and Lat Chest 2 Views Frontal and Lat Hx of Present Illness: Patient from independent living facility with AMS. Patient was unable to find her way out of her one room appartment. Patient has hx of dementia. Staff unsure if patient is at basline. Patient a o to person and place, disoriented to time. Denies CP, SOB; Reason: Other:; Shortness of Breath, Fever; Clinical Question(s): Pneumonia COMPARISON: 11/13/2019 FINDINGS: LINES AND TUBES: None. LUNGS AND PLEURA: Clear lungs. Normal pulmonary vascularity. No pleural effusion. No pneumothorax. HEART, MEDIASTINUM AND KAYODE: Heart is at the upper limits of normal for size. Normal mediastinal and hilar contour. BONES AND SOFT TISSUES: No acute abnormality. IMPRESSION: No acute abnormality. WSN: [id number] Ordering Physician: Pina Hawkins Dictated By: Mao Rodgers MD Dictated Date/Time: 02/19/23 6:09 am Reviewed By: Mao Rodgers MD Signed By: Mao Rodgers MD Signed Date/Time: 02/19/23 6:09 am Transcribed By: NABOR Transcribed Date/Time: 02/19/23 6:08 am * Exam Date Time Procedure Performing Provider Status 02/18/23 11:[address] Head/Brain W/O Contrast She Brar; Pam (Verified) Notes: (CT Head/Brain W/O Contrast) Reason For Exam: Trauma RESULT: CT Head/Brain W/O Contrast CT Head/Brain W/O Contrast INDICATION: Hx of Present Illness: Patient from independent living facility with AMS. Patient was unable to find her way out of her one room appartment. Patient has hx of dementia. Staff unsure if patient is at basline. Patient a o to person and place, disoriented to time. Denies CP, SOB; Reason: Trauma; Clinical Question(s): Hematoma TECHNIQUE: Noncontrast head CT using axial technique and reconstructed in axial and coronal planes.Iterative reconstruction techniques are used to optimize dose and image quality. CTDIvol Head: 47.10 mGy, DLP Head: 772 mGy*cm. COMPARISON: None. FINDINGS: Dry Color Mixer view findings, lines and tubes: None. BRAIN AND EXTRA-AXIAL SPACES: No parenchymal hemorrhage, midline shift, or mass effect. Cuevas-white matter differentiation is wellpreserved. No acute infarct. Negative insular ribbon sign. Atherosclerotic vascular calcification of the carotid arteries but negative hyperdense vessel sign. Mild prominence of the ventricles and sulci consistent with parenchymal volume loss. Mild low-density white matter changes. No subarachnoid hemorrhage. No subdural or epidural collection. CALVARIUM, SKULL BASE, AND SOFT TISSUES: No fractures or suspicious bony lesions. The paranasal sinuses and mastoid air cells are clear. Visualized orbits and globes are intact. The extracranial soft tissues are unremarkable. IMPRESSION: No acute intracranial pathology. WSN: [id number] Ordering Physician: Pina Hawkins Dictated By: Mao Rodgers MD Dictated Date/Time: 02/18/23 11:53 p Reviewed By: Mao Rodgers MD Signed By: Mao Rodgers MD Signed Date/Time: 02/18/23 11:53 pm Transcribed By: NABOR Transcribed Date/Time: 02/18/23 11:52 pm Vital Signs Most recent to oldest [Reference Range]: 1 2 3 Oxygen Saturation [94-100 %] 97 % (02/19/23 6:18 AM) 96 % (02/19/23 3:50 AM) 100 % (02/19/23 12:22 AM) Pulse Rate [55-90 bpm] 71 bpm (02/19/23 6:18 AM) 68 bpm (02/19/23 3:50 AM) 64 bpm (02/19/23 12:22 AM) Blood Pressure [90-138/55-84 mm Hg] 189/93mm Hg *H* (02/19/23 6:18 AM) 184/83mm Hg *H* (02/19/23 3:50 AM) 152/97mm Hg *H* (02/19/23 12:22 AM) Respiratory Rate [16-30 br/min] 16 br/min (02/19/23 6:18 AM) 15 br/min *L* (02/19/23 3:50 AM) 16 br/min (02/19/23 12:22 AM) Temperature [96.8-100.4 DegF] 97.5 DegF (02/19/23 6:18 AM) 97.9 DegF (02/19/23 3:50 AM) 98.0 DegF (02/19/23 12:22 AM) Mode of Delivery (Oxygen) Room air (02/19/23 6:18 AM) Room air (02/19/23 3:50 AM) Room air (02/19/23 12:22 AM) Blood pressure sites Arm, left (02/19/23 6:18 AM) Arm, left (02/19/23 3:50 AM) Arm, left (02/19/23 12:22 AM) Temperature Route Oral (02/19/23 6:18 AM) Oral (02/19/23 3:50 AM) Oral (02/19/23 12:22 AM) Social History Social History Type Response Smoking Status Never (less than 100 in lifetime) entered on: 11/13/19 Sex Note * Marcelle Maier: PERFORM Event Display: Patient Education Leaflets Authored Date: [id number] Confusion ?? [id number] Confusion Confusion (delirium) is a change in a person???s ability to think clearly. There may be trouble recognizing familiar people and places or knowing what day it is. Memory, judgment, and decision-makingmay also be affected. In severe cases, the person may have limited or no response to being spoken to. Confusion usually appears over a few days and can vary throughout the day. It can last weeks to mo nths or longer, depending on the cause. Confusion is usually a sign of an underlying problem. It may occur suddenly. Or it may develop gradually over time. Causes of confusion include brain injury, stroke, heart disease, low blood sugar indiabetes, medicines, alcohol, withdrawal from certain medicines or illegal drugs, and infection. Confusion can also be a sign of low blood oxygen levels, dementia, or a mental illness. In older adults, an infection such as a urinary tract infection or pneumonia is a common cause of confusion. Treatment will depend on the cause of the problem. If infection is found, your loved one may need antibiotics. If the issue is a medicine, stopping the medicine may help. Thiamine supplement may helpwith very little risk of side effects. Benzodiazepines may help people who are undergoing alcohol withdrawal. If confusion is chronic, your loved one may need medicines to treat forms of dementia. Home care ??? Be sure someone is with the confused person at all times. They should not be left alone or unsupervised. ??? Tell the healthcare provider about all medicines that the person takes. These include prescription, [id number], herbs, and supplements. ??? Dehydration can increase confus ion. Ask the healthcare provider how much fluid the person should be drinking. Offer liquids and ensure that they are taken. ??? Keep all medicines in a secure place under the caregiver???s control. To prevent overdose, a confused person should take medicines only under the supervision of a caregiver. ??? To help a person with confusion: o Establish a daily routine. Change can be a source of stress for someone with confusion. Make and keep a time schedule for common tasks such as bathing, dressing, taking medicines, meals, going for walks, shopping, naps and bed time. Make sure that the person has glasses and hearing aids if needed. o Don't use physical restraints. o Speak slowly and clearly with a gentle tone of voice. Use short simple words and sentences. Ask one question at a time. Don't interrupt, criticize, or argue. Be calm and supportive. Use friendly facial expressions. Use pointing and touching to help communicate. If there has been loss of long-term memory, don't ask questions about past events. This would only cause frustration for the person. o Use lists, signs, family ph otos, clocks and calendars as memory aids. Label cabinets and drawers. Try to distract, not confront, the person. When they become frustrated or upset, redirect attention to eating or some other activity of interest. o If this proves to be due to a permanent condition, talk to the healthcare provider or a lawyers about getting a Power of Transportation Job Titles for healthcare and for financial decisions. It's best to do this while the person can still sign legal documents and make decisions. Otherwise, a courtorder will be required. ?? Follow-up care Follow up with the person's healthcare provider or as advised for further testing or changes in medical care. ?? When to seek medical advice Call the healthcare provider for any of the following: ??? Frequent falling ??? Refusal to eat or drink ??? Increased drowsiness ??? Nausea or vomiting ??? Unexplained fever over 100.4?? F (38.0?? C), or as directed by the healthcare provider ?? Call 911 Call 911 right away if any of the following occur: ??? Violent behavior or behavior too hard to manage at home ??? New hallucinations or delusions ??? Severe headache, numbness or weakness of the face, arm, or leg ??? Slurred speech or trouble speaking, walking, or seeing ??? Fainting spell, dizziness, or seizure ?? Last Reviewed Date: 2021 ?? [id number] [employer] All rights reserved. This information is not intended as a substitute for professional medical care. Always follow your healthcare professional's instructions. ?? Patient Care team information Care Team Personnel Name: Not on Staff, PCP Position: [facility] Physician (General Medicine) Member Role: PCP Name: Marcelle Maier Position: [facility] Associate Professional Member Role: ED Physician Returning Officer Address: Address: [address] [place] [address] Name: Elise Queen RN Position: [facility] ED RN W/OE and Tasks Member Role: Patient Care Provider Name: Patricia Deras Position: [facility] ED TA TREVA Name: Tayler Adler DO Position: [facility] Resident Member Role: ED Attending Physician Address: Address: [address] [place] [address] Name: Diana Payne RN Position: [facility] ED RN W/OE and Tasks Member Role: Patient Care Provider Care Team Related Persons Name: CLAY ERWIN Address: home [address] [place] [address]
--- OUTSIDE RECORDS SUMMARY | 2024-02-09 08:26 | XMS_ITS | Continuity of Care Document ---
Author Organization [facility] ter Address [address] [place] [id number]- Care Team Providers Care President Commercial Bank Name Role Phone Not on Staff, PCP Primary Care Physician Unavail able [place] [facility] [place] 05/13/23 - 05/14/[address] [address]- Discharge Disposition: A-D/C Home Attending Physician: Arias Xiao MD Admitting Physician: Arias Xiao MD Referring Physician: Not on Staff, Referring MD [...] Exam Date Time Procedure Performing Provider Status 05/13/23 10:[address] Cervical Spine W/ O Contrast Zayda Kat (Verified) Notes: (CT Cervical Spine W/O Contrast) Reason For Exam: Neck trauma, dangerous injury mechanism;Other: RESULT: CT Cervical Spine W/O Contrast CT Head/Brain W/O Contrast, CT Cervical Spine W/O Contrast INDICATION: Reason: Trauma; Clinical Question(s): Hematoma TECHNIQUE: Noncontrast head CT using axial technique was reconstructed in axial and coronal planes.Noncontrast spiral CT through the cervical spine was formatted in 3 planes. Automatic tube modulation was used for the cervical spine and iterative dose reconstruction was used for both the head and cervical spine to optimize scan parameters and image quality. CTDIvol Body: 14.10 mGy, DLP Body: 383 mGy*cm. CTDIvol Head: 41.40 mGy, DLP Head: 671 mGy*cm. COMPARISON: None. FINDINGS: Trust Accounts Supervisor View Findings, Lines and Tubes: None. BRAIN AND EXTRA-AXIAL SPACES: No parenchymal hemorrhage, midline shift, or mass effect. Cuevas-white matter differentiation is wellpreserved. No acute infarct. Ventricles, sulci, and basilar cisterns are normal. Moderate low-density white matter changes. No subarachnoid hemorrhage. No subdural or epidural collection. CALVARIUM, SKULL BASE, AND SOFT TISSUES: No fractures or suspicious bony lesions. The paranasal sinuses and mastoid air cells are clear. Visualized orbits and globes are intact. The extracranial soft tissues are unremarkable. CERVICAL SPINE: No fracture. No acute osseous abnormalities. Normal alignment. No locked or perched facet. Moderate multilevel degenerative disc space narrowingand end plate irregularity. Narrowing of the atlantodens interval with osteophyte formation. OTHER BONES: No acute abnormality. CERVICAL SOFT TISSUES AND LUNG APICES: Normal soft tissues. Visualized lung apices are clear. IMPRESSION: No acute intracranial abnormality. Moderate chronic small vessel ischemic changes. No cervical spine fracture or subluxation. Discogenic degenerative disease. WSN: [id number] Ordering Physician: Arias Xiao MD Dictated By: Kelly Mendoza MD Dictated Date/Time: 05/13/23 10:54 p Reviewed By: Kelly Mendoza MD Signed By: Kelly Mendoza MD Signed Date/Time: 05/13/23 10:54 pm Transcribed By: NABOR Transcribed Date/Time: 05/13/23 10:45 pm * Exam Date Time Procedure Performing Provider Status 05/13/23 10:[address] Head/Brain W/O Contrast Zayda Kat; Pam (Verified) Notes: (CT Head/Brain W/O Contrast) Reason For Exam: Trauma RESULT: CT Head/Brain W/O Contrast CT Head/Brain W/O Contrast, CT Cervical Spine W/O Contrast INDICATION: Reason: Trauma; Clinical Question(s): Hematoma TECHNIQUE: Noncontrast head CT using axial technique was reconstructed in axial and coronal planes.Noncontrast spiral CT through the cervical spine was formatted in 3 planes. Automatic tube modulation was used for the cervical spine and iterative dose reconstruction was used for both the head and cervical spine to optimize scan parameters and image quality. CTDIvol Body: 14.10 mGy, DLP Body: 383 mGy*cm. CTDIvol Head: 41.40 mGy, DLP Head: 671 mGy*cm. COMPARISON: None. FINDINGS: Trust Accounts Supervisor View Findings, Lines and Tubes: None. BRAIN AND EXTRA-AXIAL SPACES: No parenchymal hemorrhage, midline shift, or mass effect. Cuevas-white matter differentiation is wellpreserved. No acute infarct. Ventricles, sulci, and basilar cisterns are normal. Moderate low-density white matter changes. No subarachnoid hemorrhage. No subdural or epidural collection. CALVARIUM, SKULL BASE, AND SOFT TISSUES: No fractures or suspicious bony lesions. The paranasal sinuses and mastoid air cells are clear. Visualized orbits and globes are intact. The extracranial soft tissues are unremarkable. CERVICAL SPINE: No fracture. No acute osseous abnormalities. Normal alignment. No locked or perched facet. Moderate multilevel degenerative disc space narrowingand end plate irregularity. Narrowing of the atlantodens interval with osteophyte formation. OTHER BONES: No acute abnormality. CERVICAL SOFT TISSUES AND LUNG APICES: Normal soft tissues. Visualized lung apices are clear. IMPRESSION: No acute intracranial abnormality. Moderate chronic small vessel ischemic changes. No cervical spine fracture or subluxation. Discogenic degenerative disease. WSN: [id number] Ordering Physician: Arias Xiao MD Dictated By: Kelly Mendoza MD Dictated Date/Time: 05/13/23 10:54 p Reviewed By: Kelly Mendoza MD Signed By: Kelly Mendoza MD Signed Date/Time: 05/13/23 10:54 pm Transcribed By: NABOR Transcribed Date/Time: 05/13/23 10:45 pm Vital Signs Most recent to oldest [Reference Range]: 1 2 Oxygen Saturation [94-100 %] 98 % (05/13/23 10:55 PM) Pulse Rate [55-90 bpm] 55 bpm (05/13/23 10:55 PM) Blood Pressure [90-138/55-84 mm Hg] 185/ 76mm Hg *H* (05/13/23 10:55 PM) 185/76mm Hg *H* (05/13/23 10:55 PM) Respiratory Rate [16-30 br/min] 18 br/mi n (9/29/23 10:55 PM) 18 br/min (05/13/23 10:05 PM) Temperature [96.8-100.4 DegF] 97.7 DegF (05/13/23 10:55 PM) Mode of Delivery (Oxygen) room air (05/13/23 10:55 PM) Blood pressure sites Arm, right (05/13/23 10:55 PM) Temperature Route Oral (05/13/23 10:55 PM) Social History Social History Type Response Smoking Status Never (less than 100 in lifetime) entered on: 11/13/19 Sex Patient Care team information Care Team Personnel Name: Not on Staff, PCP Position: [facility] Physician (General Medicine) Member Role: PCP Name: *[facility], ED Attending Position: [facility] ED Attendings Patient Name: Abner Perry RN Position: [facility] ED RN W/OE and Tasks Member Role: Patient Care Provider Name: Arias Xiao MD Position: [facility] ED Medicine MD Member Role: ED Attending Physician Address: Address: [address] [place] [address] Emergency Medicine [address] Name: Hannah Gardner Position: [facility] ED TA [facility] Member Role: Patient Care Provider Care Team Related Persons Name: CLAY ERWIN Address: home [address] [place] [address]
--- OUTSIDE RECORDS SUMMARY | 2024-02-09 08:26 | XMS_ITS | Continuity of Care Document ---
Author Organization [facility] ter Address [address] [place] [id number]- Care Team Providers Care Molding Sander Name Role Phone Surjit LEROY, Eloina Whitehead Primary Care Physician Encounter [facility] Date(s): 08/27/23 - 09/08/[address] [id number] Discharge Disposition: A-Transfer SNF Attending Physician: Bety Armando MD Admitting Physician: Keshav Burgos MD Referring Physician: Not on Staff, Referring MD Allergies, Adverse Reactions, Alerts Substance Reaction Severity Status penicillins hives Active Cardizem Active PHENobarbital Sodium hives Active Immunizations Given and Recorded Vaccine Date Status Refusal Reason pneumococcal 23-valent vaccine 07/02/12 Given influenza virus vaccine, inactivated 07/02/12 Give n Medications Amlodipine = 5 mg, By Mouth, Daily, 0 Refills, Maintenance, 08/27/23 12:09:00 EST, Partial fill upon patient request if the prescription is for a schedule II opioid drug. Start Date: 08/27/23 Status: Ordered amLODIPine 5 mg oral tablet 5 mg, Tablet, By Mouth, 09/08/23 9:00:00 EST Start Date: 09/08/23 Stop Date: 09/08/23 Status: Completed Calcium Citrate 315 mg + Vitamin D 250IU Tablet 2 tablet, By Mouth, 2 times a day, 0 Refills, Maintenance Start Date: 07/02/12 Status: Ordered donepezil 5 mg oral tablet 10 mg, 2, tablet, By Mouth, Daily at bedtime, # 90 tablet, Refills 0, Maintenance, 08/27/23 12:10:00 EST, Partial fill upon patient request if the prescription is for a schedule II opioid drug. Start Date: 08/27/23 Status: Ordered Infliximab = 5 mg/kg, IV Infusion, as an infusion, 0 Refills, Maintenance, 08/28/23 12:42:00 EST, Partial fillupon patient request if the prescription is for a schedule II opioid drug. Start Date: 08/28/23 Status: Ordered melatonin 3 mg oral tablet = 3 mg, By Mouth, Daily at bedtime, PRN Insomnia, 0 Refills, Maintenance, 09/08/23 13:07:00 EST, Tablet, Partial fill upon patient request if the prescription is for a schedule II opioid drug. Start Date: 09/08/23 Status: Ordered methotrexate 2.5 mg oral tablet 4 tablet = 10 mg, By Mouth, Every week, # 4 tablet, 0 Refills, Maintenance, 08/28/23 12:43:00 EST, Tablet, Partial fill upon patient request if the prescription is for a schedule II opioid drug. Start Date: 08/28/23 Status: Ordered MiraLax Powder 1 pack/packet = 17 Gm, By Mouth, Daily, PRN Constipation, 0 Refills, Maintenance, 09/08/23 13:07:00EST, Powder, Partial fill upon patient request if the prescription is for a schedule II opioid drug. Start Date: 09/08/23 Status: Ordered Senna 8.6 mg oral tablet 17.2 mg, 2, tablet, By Mouth, Daily, Refills 0, Maintenance, 09/08/23 13:07:00 EST, Tablet, Partialfill upon patient request if the prescription is for a schedule II opioid drug. Start Date: 09/08/23 Status: Ordered Problem List Condition Confirmation Course Effective Dates Status Health St atus Informant Aneurysm Confirmed Active Pain Confirmed Active Vital Signs Most recent to oldest [Reference Range]: 1 2 3 Height 157 cm (09/08/23 1:49 PM) 157 cm (09/08/23 4:57 AM) 157 cm (09/07/23 9:34 PM) Weight 67.5 kg (08/27/23 11:12 AM) 67.5 kg (08/27/23 8:22 AM) 67.5 kg (08/27/23 3:41 AM) Oxygen Saturation [94-100 %] 94 % (09/08/23 1:49 PM) 98 % (09/08/23 4:57 AM) 98 % (09/07/23 9:34 PM) Pulse Rate [55-90 bpm] 67 bpm (09/08/23 1:49 PM) 58 bpm (09/08/23 4:57 AM) 62 bpm (09/07/23 9:34 PM) Body Mass Index [18.5-24.99 kg/m2] 27.38 kg/m2 *H* (08/27/23 11:12 AM) 27.38 kg/m2 *H* (08/27/23 8:22 AM) 27.38 kg/m2 *H* (08/27/23 3:41 AM) Blood Pressure [90-138/55-84 mm Hg] 125/65mm Hg (09/08/23 1:49 PM) 139/68mm Hg *H* (09/08/23 9:03 AM) 127/73mm Hg (09/08/23 4:57 AM) Respiratory Rate [16-30 br/min] 19 br/min (09/08/23 1:49 PM) 18 br/min (09/08/23 4:57 AM) 18 br/min (09/07/23 9:34 PM) Temperature [96.8-100.4 DegF] 97.7 DegF (09/08/23 1:49 PM) 98.0 DegF (09/08/23 4:57 AM) 98.1 DegF (09/07/23 9:34 PM) Mode of Delivery (Oxygen) Room air (09/08/23 1:49 PM) Room air (09/08/23 4:57 AM) Room air (09/07/23 9:34 PM) Blood pressure sites Arm, right (09/08/23 1:49 PM) Arm, right (09/08/23 4:57 AM) Arm, left (09/07/23 9:34 PM) Temperature Route Oral (09/08/23 1:49 PM) Oral (09/08/23 4:57 AM) Oral (09/07/23 9:34 PM) Dry Weight 67.5 kg (08/27/23 11:12 AM) 67.5 kg (08/27/23 8:22 AM) 67.5 kg (08/27/23 3:41 AM) Social History Social History Type Response Smoking Status Never (less than 100 in lifetime) entered on: 11/13/19 Sex Female Admission evaluation note * Loretta LEROY, Keshav Dennis: PERFORM, MODIFY Event Display: Admission Note Authored Date: [id number] Patient: ??DOMINGO MCKEON ? Age:??73 Years?Sex:??Female?:??1950?? Chief Complaint/Reason for Consultation sync event at assisted living [facility], lowered to the ground, pt did vomit, recent OR few months ago History of Present Illness 73-year-old female patient with a medical history significant for dementia, hypertension, history of transient ischemic attack, psoriatic arthritis, history of kidney stone who presented to the emergency department for evaluation of presyncope. ?? History is limited due to patient dementia - reportedly patient lives in assisted living facility- patient felt lightheaded someone has helped lower her to the ground and patient vomited. There is repeort of recent cardiac event few months ago - details unclear. ?? In the emergency department she was afebrile, hemodynamically stable, on room air with oxygen saturation.?? Labs including complete blood cell count, basic metabolic panel and liver biochemical profile were largely unremarkable except for mild leukopenia with WBC of 2.9 and mild hyperbilirubinemia with total bilirubin of 1.5 mg/dL.?? Troponin was 25 and 23 on repeat 3 hours later.??EKG showed??biphasic t waves in leads V3-V5. Review of Systems Constitutional:?No weight loss, fever, chills, weakness or fatigue. Cardiovascular:??No chest pain,pressure or discomfort. No palpitations or pedal edema. Respiratory:??No shortness of breath, cough or sputum production. Gastrointestinal:?No anorexia, nausea, vomiting or diarrhea. No abdominal pain or blood in stool. Genitourinary: No burning micturition. No urinary frequency or incontinence. Neurologic: No headache, dizziness, syncope, unilateral weakness, ataxia, numbness or tingling in the extremities. No change in bowel or bladder control. Musculoskeletal: No muscle pain, back pain, joint pain or stiffness. Hematologic: No bleeding or bruising. Lymphatics: No enlarged lymph nodes. Psychiatric: No depression or anxiety. Endocrine: No reports of sweating. No cold or heat intolerance. No polyuria or polydipsia. All other systems were reviewed and are negative.?? Objective Vital Signs?? Temperature: 98.1 DegF (08/26/23 00:13:00) Temperature Route: Oral (08/26/23 00:13:00) Pulse Rate: 71 bpm (08/26/23 00:13:00) Respiratory Rate: 21 br/min (08/26/23 00:13:00) Systolic Blood Pressure:??153 mm Hg??High (08/26/23 00:13:00) Diastolic Blood Pressure: 82 mm Hg (08/26/23 00:13:00) Blood pressure sites: Arm, right (08/26/23 00:13:00) Mean Arterial Pressure: 106 mm Hg (08/26/23 00:13:00) Pulse Pressure: 71 mm Hg (08/26/23 00:13:00) Oxygen Saturation: 98 % (08/26/23 00:13:00) Mode of Delivery (Oxygen): Room air (08/26/23 00:13:00) Early Warning Score:??12??Critical (08/26/23 02:05:21) ? Physical Exam Constitutional: Alert, in no acute distress. Head: Normocephalic. Eyes: Pupils are equal, round and reactive to light. Extraocular muscles intact. Ear, Nose and Throat: mucous membranes moist. Ears and nose - no obvious deformities. Neck: Supple, Full range of motion.No JVD or bruits. Respiratory:??Clear to auscultation. No wheezing or rhonchi.??No use of accessory muscles. Cardiovascular:??S1 S2 regular. No murmurs, rubs or gallops. Gastrointestinal:??Abdomen soft, non-tender, non-distended. Extremities: No lower extremity pitting edema. No cyanosis or clubbing. Neurologic:??AAOx1, Cranial nerves II-XII grossly intact. Speech normal, no facial droop. No focal neurological deficits. Moves all extremities spontaneously. Musculoskeletal:??No gross deformities on inspection. Psychiatric: Normal mood and affect. Assessment/Plan 73-year-old female patient with a medical history significant for dementia, hypertension, history of transient ischemic attack, psoriatic arthritis, history of kidney stone who presented to the emergency department for evaluation of presyncope.? Diagnoses 1. ??Lightheaded ??(R42) 2. ??Hypertension ??(I10) 3. ??Dementia ??(F03.90) 4. ??Psoriatic arthritis ??(L40.50) 5. Thrombocytopenia ??(D69.6) ?? Lightheaded (R42):?? Patient with unclear cardiac history - reported to have a cardiac event a month ago presenting withlightheadedness, nausea and vomiting. Troponin was 25 and 23 on repeat 3 hours later. EKG showed biphasic t waves in leads V3-V5. Patient denies any symptom at this time. - echocardiogram given EKG abnormalities. 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 ?? Hypertension (I10):?? - continue home amlodipine. - hold home lasix. ?? Dementia (F03.90):??- continue home donepezil. ?? Psoriatic arthritis (L40.50):??- ?? Thrombocytopenia (D69.6):??chronic - worse - no sign of active bleed. - continue to monitor. ?? VTE Prophylaxis:??hold chemical VTE prophylaxis given thrombocytopenia ?? Code Status:??presumed full code. ?Order Code Status:??Code Status Ordered ? Histories Allergies Allergies ?(Active and Proposed Allergies Only) Cardizem? (Severity: Unknown severity, Onset: Unknown) PHENobarbital Sodium? (Severity: Unknown severity, Onset: Unknown) ?Reactions: hives penicillins? (Severity: Unknown severity, Onset: Unknown) ?Reactions: hives ? Past Medical History/Problem List Active Problems??(2) Aneurysm Pain ? Past Surgical History No surgery history documented. ? Social History Alcohol Details:??Frequency: 1-2 times per week. Tobacco Details:??Use: Never (less than 100 in lifetime). ? Family History No family history recorded. ? Medications Home Medications apixaban (Eliquis Starter Pack 5 mg oral tablet)?2?tab(s)?10?Milligram?By Mouth?2times a day?for 7?Days?followed by 1 tablet by mouth twice daily for 23 days Aspirin (aspirin 81 mg oral tablet)?1?tab(s)?81?Milligram?By Mouth?Daily Calcium And Vitamin D Combination (Calcium Citrate 315 mg + Vitamin D 250IU Tablet)?2?tab(s)?By Mouth?2 times a day Cetirizine (Zyrtec 10 mg oral tablet)?1?tab(s)?10?Milligram?By Mouth?Daily Cholecalciferol (Vitamin D3 1000 intl units oral capsule)?1?capsule?1,000?InternationalUnit?By Mouth?Daily Folic Acid (folic acid 1 mg oral tablet)?1?tab(s)?1?Milligram?By Mouth?Daily Hydrochlorothiazide?25?Milligram?By Mouth?Daily Ibuprofen (Motrin Tablet)?800?Milligram?By Mouth?4 times a day?as needed?Pain , Mild Meclizine?By Mouth?3 times a day Pantoprazole (pantoprazole 40 mg oral delayed release tablet)?1?tab(s)?40?Milligram?By Mouth?Daily PredniSONE (predniSONE 5 mg oral tablet)?See Instructions?1 tablet By Mouth 2 times a day for??Will need to follow with Dr. Washburn at [facility] for taperwith food or milk ? Results Recent Labs BLOOD COUNT & DIFF WBC 2.9 k/mm3 (Low)?? 08/25/2023 16:13 RBC 4.67 m/mm3 ()?? 08/25/2023 16:13 Hgb 14.7 Gm/dL ()?? 08/25/2023 16:13 Hct 45.0 % ()?? 08/25/2023 16:13 MCV 96.4 femtoliters ()?? 08/25/2023 16:13 MCH 31.5 pg ()?? 08/25/2023 16:13 MCHC 32.7 g/dL (Low)?? 08/25/2023 16:13 Platelet Count 35 k/mm3 (Low)?? 08/25/2023 16:13 RDW-SD 46.4 femtoliters ()?? 08/25/2023 16:13 MPV 13.0 femtoliters (High)?? 08/25/2023 16:13 Nucleated RBC (Automated) 0.0 #/100 WBC'S ()?? 08/25/2023 16:13 Abs. NRBC 0.0 k/mm3 ()?? 08/25/2023 16:13 Abs. Neut 2.6 k/mm3 ()?? 08/25/2023 16:13 Abs. Lymph 0.2 k/mm3 (Low)?? 08/25/2023 16:13 Abs. [place] 0.1 k/mm3 (Low)?? 08/25/2023 16:13 Abs. Eo 0.0 k/mm3 ()?? 08/25/2023 16:13 Abs. Baso 0.0 k/mm3 ()?? 08/25/2023 16:13 Neut % 75.2 % ()?? 08/25/2023 16:13 Lymph % 5.1 % (Low)?? 08/25/2023 16:13 [place] % 3.4 % (Low)?? 08/25/2023 16:13 Eos % 0.0 % ()?? 08/25/2023 16:13 Baso % 0.0 % ()?? 08/25/2023 16:13 Band % 13.7 % (High)?? 08/25/2023 16:13 Atypical Lymph % 2.6 % ()?? 08/25/2023 16:13 RBC Morphology MODERATE ()?? 08/25/2023 16:13 Platelet Estimate DECREASED ()?? 08/25/2023 16:13 ?? CARDIAC High Sensitivity Troponin (HSTnT) 23 ng/L (High)?? 08/25/2023 20:24 ?? CHEM GENERAL Sodium 135 mmol/L ()?? 08/25/2023 16:13 Potassium 3.6 mmol/L ()?? 08/25/2023 16:13 Chloride 107 mmol/L ()?? 08/25/2023 16:13 Bicarbonate Level 20 mmol/L (Low)?? 08/25/2023 16:13 Anion Gap 8 ()?? 08/25/2023 16:13 Glucose Level 90 mg/dL ()?? 08/25/2023 16:13 BUN 12 mg/dL ()?? 08/25/2023 16:13 Creatinine-Blood 1.0 mg/dL ()?? 08/25/2023 16:13 Estimated GFR Creatinine 62 ML/MIN/1.73 M2 ()?? 08/25/2023 16:13 Calcium 8.0 mg/dL (Low)?? 08/25/2023 16:13 Protein, Total 7.8 Gm/dL ()?? 08/25/2023 16:13 Albumin 2.6 Gm/dL (Low)?? 08/25/2023 16:13 AG Ratio 0.5 ()?? 08/25/2023 16:13 Alkaline Phosphatase 64 units/L ()?? 08/25/2023 16:13 Lipase 53 units/L ()?? 08/25/2023 16:13 AST (SGOT) 55 units/L (High)?? 08/25/2023 16:13 ALT (SGPT) 22 units/L ()?? 08/25/2023 16:13 Bilirubin, Total 1.5 mg/dL (High)?? 08/25/2023 16:13 ?? VIROLOGY Influenza A PCR NEGATIVE ()?? 08/25/2023 15:56 Influenza B PCR NEGATIVE ()?? 08/25/2023 15:56 RSV PCR NEGATIVE ()?? 08/25/2023 15:56 COVID-19 PCR Specimen Source NASAL ()?? 08/25/2023 15:56 COVID-19 PCR Result NEGATIVE ()?? 08/25/2023 15:56 ? EKG study * Event Display: EKG Authored Date: * Event Display: ECG 12-Lead Authored Date: Please click on pdf link to open report * Event Display: ECG 12-Lead Authored Date: Ventricular Rate: 65 BPM Atrial Rate: 65 BPM P-R Interval: 150 ms QRS Duration: 108 ms Q-T Interval: 468 ms QTC Calculation(Bazett): 486 ms P [place]: -12 degrees R [place]: -31 degrees T [place]: -21 degrees Normal sinus rhythm Left axis deviation Incomplete right bundle branch block Moderate voltage criteria for LVH, may be normal variant ( R in aVL , Ignacio product ) Septal infarct , age undetermined Anterolateral ST-T changes consider ischemia Abnormal ECG When compared with ECG of 13-NOV-2019 20:45, ID interval has decreased Incomplete right bundle branch block is now Present Septal infarct is now Present Anterolateral ST-T changes suggest ischemia Confirmed by ISMA COPPOLA ([id number]) on 09/02/2023 9:07:59 AM Jewett: ISMA COPPOLA Heart * Event Display: Echocardiogram - Complete Authored Date: [id number] Transthoracic Echocardiography Report (TTE) Patient Demographics Patient Name DOMINGO MCKEON Date of Study 08/30/2023 Corporate Gender Female Facility Race Ethnicity Date of 1950 Height: 61.81 inches Age 73 year(s) Weight: 149.92 pounds Accession Number [id number] BSA: 1.69 m2 Room Number [id number] BMI: 27.59 kg/m2 Referring Physician Not on Staff Interpreting Regulo Mendez DO Referring Physician Loretta Dennis MD Rn [facility] TUCKER Amanda Indications Syncope. Clinical History Syncope. Dementia Hypertension. TIA Study Data Type of Study TTE procedure:Echo Complete-Doppler, Colorflow, M-Mode. Study Date08/30/2023 Start Time: 02:38 PM Study Location: [facility] [place] Adult Echo Study Status: Echo lab Patient Status: Routine Technical Quality: Suboptimal due to non-compliant. Blood Pressure:142/93 mmHg EKG: Normal sinus rhythm HR: 74 bpm 2D Measurements LV Diastolic Dimension: 4.7 cm LV Systolic Dimension: 3.2 cm LV Septum Diastolic: 1.1 cm LV PW Diastolic: 1.1 cm AO Root Dimension: 2.8 cm LA Dimension: 3.3 cm LA ESV (BP):65 ml LVOT Stroke Volume: 45.53 ml LA ESV Index: 38 ml/m2 Stroke Volume Index26.94 ml/m2 LVOT: 2 cm Cardiac Index:1.99 l/min/m2 Ascending Aorta:3.4 cm Doppler Measurements AV Peak Velocity: 126 cm/s MV Peak E-Wave: 52.2 cm/s AV Peak Gradient: 6.35 mmHg MV Peak A-Wave: 75.1 cm/s AV Mean Gradient: 3 mmHg MV E/A Ratio: 0.7 AV VTI:23 cm MV P1/2t: 36 msec LVOT Peak Velocity: 66.6 cm/s LVOT VTI14.5 cm MV Deceleration Time: 123 msec AV Area (Continuity):1.98 cm2 MV Area (PHT): 6.11 cm2 PV Peak Velocity: 82.6 cm/s PV Peak Gradient: 2.73 mmHg E' Septal Velocity: 4.46 cm/s E' Lateral Velocity: 6.64 cm/s E/Med E':[id number] E/Lat E':[id number] Cardiac Anatomy Left Ventricle/Interventricular Septum The left ventricular size is normal. The left ventricular wall thickness is mildly increased. LV poorly visualized. Cannot determine LV wall motion or LV function. On limited views, LV function is grossly normal. Left Atrium/Interatrial Septum The left atrium is mildly dilated. There is lipomatous hypertrophy of the interatrial septum. Aortic Valve The aortic valve is probably trileaflet and normal in structure and function. There is no aortic stenosis or insufficiency. Mitral Valve The mitral valve appears mildly thickened. There is no significant mitral regurgitation. Aorta The ascending aorta and aortic root are normal in size. Right Ventricle The right ventricle is normal in size and function. Right Atrium The right atrium is normal in size. Pulmonic Valve The pulmonic valve is functionally normal. Tricuspid Valve The tricuspid valve is normal in structure and function. There is trace regurgitation. Pumonary Artery An accurate pulmonary artery pressure could not be obtained, but appears within normal limits. Venous Structures The inferior vena cava is poorly visualized. Pericardium/Extracardiac The pericardium appears normal and there is no pericardial effusion. Summary The left ventricular size is normal. The left ventricular wall thickness is mildly increased. LV poorly visualized. Cannot determine LV wall motion or LV function. On limited views, LV function is grossly normal. The right ventricle is normal in size and function. Comparison Comparison is made to the study of July 03, 2012. Poor imaging limits comparison. Signature * Event Display: Echocardiogram - Complete Authored Date: Cardiology * Event Display: Cardiac Rhythm Strips Authored Date: [facility] Progress note * Jillian Gillespie RN: VERIFY, PERFORM, SIGN Event Display: Progress [facility] Authored Date: Patient: DOMINGO MCKEON Age: 73 years Sex: Female : 1950 Associated Diagnoses: None Author: Jillian Gillespie RN Findings Problem Related to Alteration in Psychosocial : Alteration in Psychosocial Function/new 09/07/2023 9:00 EST Alteration in Psychosocial Related to Delirium Goals & Outcomes, Psychosocial Psychosocial support will be provided to Pt/S.O. as needed, Pt will state importance of adhering to medication regime, Pt/caregiver will be offered appropriate resources & support, Pt/caregiver will participate in coping skill counseling Interventions, Psychosocial Assess psychosocial needs, Assess readiness to learn needed lifestyle changes, Assess/monitor level of consciousness, Collaborate with provider for psychiatric consult, Provide chances to express concerns/emotions/expectations, Provide info on community resources for educ ation, support BH Goals/Interventions, Psychosocial Yes Psychosocial, Problem Start 09/07/2023 9:00 Reviewed Plan with, Psychosocial Patient Patient Progression, Psychosocial Plan Initiation . Nursing Data Vital Signs : VITAL SIGNS SECTION 09/07/2023 16:44 EST Temperature 97.5 DegF Temperature Route Oral Pulse Rate 80 bpm Respiratory Rate 16 br/min Systolic Blood Pressure 126 mm Hg Diastolic Blood Pressure 67 mm Hg Blood pressure sites Arm, right Mean Arterial Pressure 87 mm Hg Pulse Pressure 59 mm Hg Oxygen Saturation 100 % Mode of Delivery (Oxygen) Room air . Narrative/Incidental Patient alert to self only. Disoriented to location and time. Cooperative with care. LSCTA on RA. 1x walker, steady. K 3.4, potassium repleated. Scheduled meds administered. Please see biophysical for further assessment. Hourly rounding in place, patients safety remained.. . * Crow Razo DO: MODIFY, MODIFY, MODIFY, PERFORM Event Display: Progress Note Hospital Authored Date: Patient: ??DOMINGO MCKEON ? Age:??73 Years?Sex:??Female?:??1950?? Subjective Chart reviewed, no acute events overnight. Patient was seen this morning.?? Pt was found laying in bed talking to herself. She was somewhat irritable today. No changes otherwise. Pt feels like her normal self and had no complaints. ?? Review of Systems Pertinent positives as listed above in HPI. ??Otherwise, remainder of review of systems negative. Objective Vital Signs?? Temperature: 98.1 DegF (09/07/23 05:00:00) Temperature Route: Oral (09/07/23 05:00:00) Pulse Rate: 70 bpm (09/07/23 05:00:00) Respiratory Rate: 17 br/min (09/07/23 05:00:00) Systolic Blood Pressure: 110 mm Hg (09/07/23 05:00:00) Diastolic Blood Pressure: 68 mm Hg (09/07/23 05:00:00) Blood pressure sites: Arm, left (09/07/23 05:00:00) Mean Arterial Pressure: 79 mm Hg (09/06/23 22:08:00) Pulse Pressure: 42 mm Hg (09/07/23 05:00:00) Oxygen Saturation: 99 % (09/07/23 05:00:00) Mode of Delivery (Oxygen): Room air (09/07/23 05:00:00) Early Warning Score: 6 (09/07/23 06:08:06) ? Intake/Output? 08/27 12:22 09/07 07:00 09/06 07:00 09/05 07:00 09/04 07:00 ?? 09/07 08:34 09/07 08:34 09/07 06:59 09/06 06:59 09/05 06:59 Intake ? 6469.5 ?0 ?474 ?0 ?450 Output ? 1023 ?0 ?0 ?0 ?1 Net Total ? 5446.5 ?0 ?474 ?0 ?449 ? Urine Count ? 34 ?0 ?5 ?0 ?8 ? Physical Exam General Appearance: The patient is in NAD. Cardiovascular: RRR S1 and S2 heard with no M/R/G. No JVD. Respiratory: ??Breath sounds clear to auscultation bilaterally. No wheezing. Good air movement throughout both lungs. GI: Soft. Nontender and nondistended. Normal bowel sounds present throughout abdomen.?? MS: ??No edema or erythema in the lower extremities. No wounds seen on the feet. Peripheral sensation intact.?? Neuro: ??No slurred speech. ??Patient seen moving their upper and lower extremities independently. Psych: Alert and oriented x2.?? _ Inpatient Medications Medications (17) Active SCHEDULED: (4) Amlodipine 5 mg Tablet (amLODIPine 5 mg oral tablet) ??5 mg, By Mouth, Daily Donepezil 10 mg Tablet (donepezil 10 mg oral tablet) ??10 mg, By Mouth, Daily at bedtime NaCl 0.9% Flush 3ml (NaCL 0.9% Flush) ??3 mL, IV Push, Every 8 hours Potassium Chloride 10mEq ER Tablet (potassium chloride 10 mEq oral tablet, extended release) ??20 mEq, By Mouth, Once CONTINUOUS: (0) PRN: (13) Acetaminophen 325 mg Tablet (Acetaminophen Tablet) ??650 mg, By Mouth, Every 4 hours Dextrose Inj Syringe (Dextrose 50% Inj Syringe (25Gm)) ??12.5 Gm, IV Push Slowly, Every 20 minutes Dextrose Inj Syringe (Dextrose 50% Inj Syringe (25Gm)) ??25 Gm, IV Push Slowly, Every 15 minutes Docusate Sodium 100 mg Capsule (Docusate Sodium Capsule) ??100 mg 1 capsule, By Mouth, 2 times a day Glucagon 1 mg Inj (Glucagon Inj) ??1 mg, Intramuscular, Once Glucose 40% Gel (15 Gm) (Glucose Gel) ??15 Gm, By Mouth, Every 20 minutes Glucose 40% Gel (15 Gm) (Glucose Gel) ??30 Gm, By Mouth, Every 20 minutes Lidocaine 2% Viscous Solution UD (15mL) (Lidocaine 2% Viscous Liquid) ??10 mL, Swish and Spit, Every 4 hours Melatonin 3 mg Tablet (Melatonin Tablet) ??3 mg, By Mouth, Daily at bedtime NaCl 0.9% Flush 3ml (NaCL 0.9% Flush) ??3 mL, IV Push, Every 8 hours Polyethylene Glycol 17 Gm Powder (MiraLax Powder) ??17 Gm 1 pack/packet, By Mouth, Daily Senna Tablet ??8.6 mg 1 tablet, By Mouth, 2 times a day Trazodone 50 mg Tablet (traZODone 50 mg oral tablet) ??25 mg, By Mouth, 2 times a day ? Results Recent Labs BLOOD COUNT & DIFF WBC 3.8 k/mm3 (Low)?? 09/07/2023 05:07 RBC 3.98 m/mm3 (Low)?? 09/07/2023 05:07 Hgb 12.4 Gm/dL ()?? 09/07/2023 05:07 Hct 37.1 % ()?? 09/07/2023 05:07 MCV 93.2 femtoliters ()?? 09/07/2023 05:07 MCH 31.2 pg ()?? 09/07/2023 05:07 MCHC 33.4 g/dL ()?? 09/07/2023 05:07 Platelet Count 88 k/mm3 (Low)?? 09/07/2023 05:07 RDW-SD 42.5 femtoliters ()?? 09/07/2023 05:07 MPV 11.6 femtoliters ()?? 09/07/2023 05:07 Nucleated RBC (Automated) 0.0 #/100 WBC'S ()?? 09/07/2023 05:07 Abs. NRBC 0.0 k/mm3 ()?? 09/07/2023 05:07 ?? CHEM GENERAL Sodium 140 mmol/L ()?? 09/07/2023 05:11 Potassium 3.4 mmol/L (Low)?? 09/07/2023 05:11 Chloride 111 mmol/L (High)?? 09/07/2023 05:11 Bicarbonate Level 22 mmol/L ()?? 09/07/2023 05:11 Anion Gap 7 ()?? 09/07/2023 05:11 Glucose Level 72 mg/dL ()?? 09/07/2023 05:11 BUN 12 mg/dL ()?? 09/07/2023 05:11 Creatinine-Blood 0.9 mg/dL ()?? 09/07/2023 05:11 Estimated GFR Creatinine 65 ML/MIN/1.73 M2 ()?? 09/07/2023 05:11 Calcium 8.3 mg/dL (Low)?? 09/07/2023 05:11 ? Assessment/Plan Patient is a 73-year-old female with a past medical history of dementia, hypertension, prior TIA, psoriatic arthritis, prior kidney stone who presented to the ED after an episode of presyncope. Patient herself does not remember the episode. ECG was somewhat concerning for cardiac etiology but Echo??did not show any overt abnormalities. She has not had any major complaints while here. Her son has been involved and is in agreement with getting her to a higher level of??assisted living. Arrangements to make him HCP??were made. Dispo management ongoing. ?? Delirium (R41.0):?? Dementia (F03.90):??Continues to have periods of delirium. Plan ?Discontinued scheduled trazodone 25mg to prevent delirium. Continued PRN dose for agitation. ??? Continue as needed trazodone for delirium ??? Continue??home donepezil??10 mg daily - Pt is clearly not oriented and, per her son, has been steadily declining in cognition for at least 3 years. She does not have decision-making capacity with regards to disposition.??Her son states he has been trying to arrange for a more conducive living arrangement. -??Psychiatry was able to see the pt to assess for??capacity to assign HCP.??We appreciate??their assessment. Conclusion seems to be that she does have??capacity to assign HCP but not to make dispo decisions. - Pt was able to designate her son as HCP. CM is currently attempting to seek an appropriate (and financially tenable) option for carry out clerk care facilities. - Spoke to pt's son who stated his home would probably not be appropriate as it is on a second story. He would also like for Domingo to get more supervision especially overnight as she has a habit of eloping. ?? Lightheaded (R42):?? Postural dizziness with presyncope (R42):??Patient presented with episode of presyncope. She herself does not remember the episode. EKG showing sinus rhythm, left axis deviation, new incomplete right bundle branch block as well as septal infarct which is new from prior. No clear cause of syncope however. Orthostatic vitals were initially positive, subsequently negative. Low concern for seizure. Plan ??? Orthostatic vitals negative as of 08/29, possibly d/t to rehydration. ??? Echo showed normal LV size with only mild wall thickening, normal RV. No overt abnormalities toexplain presyncope. ??? PT??eval complete ?? Hypertension (I10):??Patient initially hypertensive but now has normalized. Was only on amlodipine 5 mg daily at home but it seems she has not been taking this for a long time. Plan ??? Continue amlodipine 5 mg daily ??? Continue to monitor vitals as per unit standard ?? Hypophosphatemia: Possibly d/t malnutrition Plan - Repleted,??now 2.4. Still somewhat low but significantly improved. Will continue to monitor.? Hypokalemia Plan - 3.4 on 09/07,??repleted. Will continue to monitor. ?? Thrombocytopenia (D69.6):??Platelets ranging between 30-36 since admission Platelets currently lower than most recent baseline during previous hospitalization which was closer to 70s. No anemia present but hemolysis labs were obtained which showed low haptoglobin, normal LDH, and normal reticulocyte count. With haptoglobin does suggest hemolysis but otherwise normal findings. Plan ??? CBC daily ??? If hemoglobin begins to drop or if platelets worsen would suggest involvement from hematology; otherwise continue to monitor for now. -??May be due to use of methotrexate. ?? Psoriatic arthritis (L40.50):??Continue to monitor ?? VTE Prophylaxis:??PCB due to thrombocytopenia Code Status:??Full code Ongoing Medical Necessity:??Presyncope workup Discharge Planning:??Pending facility placement ?? Case and plan discussed with chief resident, Dr. Montgomery. ?? Crow Razo DO PGY-1 Pager #[phone] * Tr LEROY, Bety: PERFORM Event Display: Progress Note Hospital Authored Date: Attending Attestation:??I have seen and??evaluated this??patient independently. ??I have also discussed the case and its management with Dr. Montgomery (chief resident and randal faculty attending on-service) and agree with the findings and plan as documented in the resident???s note. Crow Weller DO: PERFORM, MODIFY Event Display: Progress Note Hospital Authored Date: Patient: ??DOMINGO MCKEON ? Age:??73 Years?Sex:??Female?:??1950?? Subjective Chart reviewed, no acute events overnight. Patient was seen this morning.?? Perseverates as usual on autobiographical details such as her cultural heritage and her upbringing in the . Memory seems impaired as she kept circling back to these topics repetitively. No actual complaints today. She had a tray of food next to her but was not interested in eating yet. Review of Systems Pertinent positives as listed above in HPI. ??Otherwise, remainder of review of systems negative. Objective Vital Signs?? Temperature: 97.5 DegF (09/06/23 08:01:00) Temperature Route: Oral (09/06/23 08:01:00) Pulse Rate: 70 bpm (09/06/23 08:01:00) Respiratory Rate: 17 br/min (09/06/23 08:01:00) Systolic Blood Pressure: 133 mm Hg (09/06/23 08:56:00) Diastolic Blood Pressure: 80 mm Hg (09/06/23 08:56:00) Blood pressure sites: Arm, right (09/06/23 08:01:00) Mean Arterial Pressure: 101 mm Hg (09/06/23 08:01:00) Pulse Pressure: 48 mm Hg (09/06/23 08:01:00) Oxygen Saturation: 99 % (09/06/23 08:01:00) Mode of Delivery (Oxygen): Room air (09/06/23 08:01:00) Early Warning Score: 2 (09/06/23 08:56:33) ? Intake/Output? 08/27 12:22 09/06 07:00 09/05 07:00 09/04 07:00 09/03 07:00 ?? 09/06 09:57 09/06 09:57 09/06 06:59 09/05 06:59 09/04 06:59 Intake ? 5995.5 ?0 ?0 ?450 ?835 Output ? 1023 ?0 ?0 ?1 ?1 Net Total ? 4972.5 ?0 ?0 ?449 ?834 ? Urine Count ? 31 ?0 ?0 ?5 ?4 ? Physical Exam General Appearance: The patient is in NAD. Cardiovascular: RRR S1 and S2 heard with no M/R/G. No JVD. Respiratory: ??Breath sounds clear to auscultation bilaterally. No wheezing. Good air movement throughout both lungs. GI: Soft. Nontender and nondistended. Normal bowel sounds present throughout abdomen.?? MS: ??No edema or erythema in the lower extremities. No wounds seen on the feet. Peripheral sensation intact.?? Neuro: ??No slurred speech. ??Patient seen moving their upper and lower extremities independently. Psych: Alert and oriented x2.?? _ Inpatient Medications Medications (16) Active SCHEDULED: (3) Amlodipine 5 mg Tablet (amLODIPine 5 mg oral tablet) ??5 mg, By Mouth, Daily Donepezil 10 mg Tablet (donepezil 10 mg oral tablet) ??10 mg, By Mouth, Daily at bedtime NaCl 0.9% Flush 3ml (NaCL 0.9% Flush) ??3 mL, IV Push, Every 8 hours CONTINUOUS: (0) PRN: (13) Acetaminophen 325 mg Tablet (Acetaminophen Tablet) ??650 mg, By Mouth, Every 4 hours Dextrose Inj Syringe (Dextrose 50% Inj Syringe (25Gm)) ??12.5 Gm, IV Push Slowly, Every 20 minutes Dextrose Inj Syringe (Dextrose 50% Inj Syringe (25Gm)) ??25 Gm, IV Push Slowly, Every 15 minutes Docusate Sodium 100 mg Capsule (Docusate Sodium Capsule) ??100 mg 1 capsule, By Mouth, 2 times a day Glucagon 1 mg Inj (Glucagon Inj) ??1 mg, Intramuscular, Once Glucose 40% Gel (15 Gm) (Glucose Gel) ??15 Gm, By Mouth, Every 20 minutes Glucose 40% Gel (15 Gm) (Glucose Gel) ??30 Gm, By Mouth, Every 20 minutes Lidocaine 2% Viscous Solution UD (15mL) (Lidocaine 2% Viscous Liquid) ??10 mL, Swish and Spit, Every 4 hours Melatonin 3 mg Tablet (Melatonin Tablet) ??3 mg, By Mouth, Daily at bedtime NaCl 0.9% Flush 3ml (NaCL 0.9% Flush) ??3 mL, IV Push, Every 8 hours Polyethylene Glycol 17 Gm Powder (MiraLax Powder) ??17 Gm 1 pack/packet, By Mouth, Daily Senna Tablet ??8.6 mg 1 tablet, By Mouth, 2 times a day Trazodone 50 mg Tablet (traZODone 50 mg oral tablet) ??25 mg, By Mouth, 2 times a day ? Results Recent Labs VIROLOGY Influenza A PCR NEGATIVE ()?? 09/05/2023 11:00 Influenza B PCR NEGATIVE ()?? 09/05/2023 11:00 RSV PCR NEGATIVE ()?? 09/05/2023 11:00 COVID-19 PCR Specimen Source NASAL ()?? 09/05/2023 11:00 COVID-19 PCR Result NEGATIVE ()?? 09/05/2023 11:00 ? Assessment/Plan Patient is a 73-year-old female with a past medical history of dementia, hypertension, prior TIA, psoriatic arthritis, prior kidney stone who presented to the ED after an episode of presyncope. Patient herself does not remember the episode. ECG was somewhat concerning for cardiac etiology but Echo??did not show any overt abnormalities. She has not had any major complaints while here. Her son has been involved and is in agreement with getting her to a higher level of??assisted living. Arrangements to make him HCP??were made. ?? Delirium (R41.0):?? Dementia (F03.90):??Continues to have periods of delirium. Plan ?Discontinued scheduled trazodone 25mg to prevent delirium. Continued PRN dose for agitation. ??? Continue as needed trazodone for delirium ??? Continue??home donepezil??10 mg daily - Pt is clearly not oriented and, per her son, has been steadily declining in cognition for at least 3 years. She does not have decision-making capacity with regards to disposition.??Her son states he has been trying to arrange for a more conducive living arrangement. -??Psychiatry was able to see the pt to assess for??capacity to assign HCP.??We appreciate??their assessment. Conclusion seems to be that she does have??capacity to assign HCP but not to make dispo decisions. - Pt was able to designate her son as HCP. CM is currently attempting to seek an appropriate (and financially tenable) option for prison care facilities. - Spoke to pt's son who stated his home would probably not be appropriate as it is on a second story. He would also like for Domingo to get more supervision especially overnight as she has a habit of eloping. ?? Lightheaded (R42):?? Postural dizziness with presyncope (R42):??Patient presented with episode of presyncope. She herself does not remember the episode. EKG showing sinus rhythm, left axis deviation, new incomplete right bundle branch block as well as septal infarct which is new from prior. No clear cause of syncope however. Orthostatic vitals were initially positive, subsequently negative. Low concern for seizure. Plan ??? Orthostatic vitals negative as of 08/29, possibly d/t to rehydration. ??? Echo showed normal LV size with only mild wall thickening, normal RV. No overt abnormalities toexplain presyncope. ??? PT??eval complete ?? Hypertension (I10):??Patient initially hypertensive but now has normalized. Was only on amlodipine 5 mg daily at home but it seems she has not been taking this for a long time. Plan ??? Continue amlodipine 5 mg daily ??? Continue to monitor vitals as per unit standard ?? Hypophosphatemia: Possibly d/t malnutrition Plan - Repleted,??now 2.4. Still somewhat low but significantly improved. Will continue to monitor.? Hypokalemia Plan - 3.7,??will continue to monitor ?? Thrombocytopenia (D69.6):??Platelets ranging between 30-36 since admission Platelets currently lower than most recent baseline during previous hospitalization which was closer to 70s. No anemia present but hemolysis labs were obtained which showed low haptoglobin, normal LDH, and normal reticulocyte count. With haptoglobin does suggest hemolysis but otherwise normal findings. Plan ??? CBC daily ??? If hemoglobin begins to drop or if platelets worsen would suggest involvement from hematology; otherwise continue to monitor for now. -??May be due to use of methotrexate. ?? Psoriatic arthritis (L40.50):??Continue to monitor ?? VTE Prophylaxis:??PCB due to thrombocytopenia Code Status:??Full code Ongoing Medical Necessity:??Presyncope workup Discharge Planning:??Pending facility placement ?? Case and plan discussed with chief resident, Dr. Montgomery. ?? Crow Razo, PGY-1 Pager #[phone] * Tr LEROY, Bety: PERFORM Event Display: Progress Note Hospital Authored Date: Attending Attestation:??I have seen, evaluated, and??discussed??the plan of care with the patient independently. ??I have also discussed the case and its management with Dr. Montgomery (chief resident and randal faculty attending on- service) and agree with the findings and plan as documented in the resident???s note. Consult note * Gopi LEROY, Porsha: MODIFY, PERFORM Event Display: Consultation Note Authored Date: Patient: ??DOMINGO MCKEON ? Age:??73 Years?Sex:??Female?:??1950?? Chief Complaint/Reason for Consultation Capacity to assign HCP History of Present Illness Patient is a 73-year-old female with a past medical history of dementia, hypertension, prior TIA, psoriatic arthritis, prior kidney stone who presented to the ED after an episode of presyncope. ?? Pt seen with friend Al in her room. Pt believes she is at [employer], became upset when told she was in the hospital. Denies medical issues, denies psychiatric hx. Reports she feels she is loosing her [place] but also made various comments in different languages as well. [facility] and the work she did. She struggled to remember details of her life, often forgot the name of her friend in the room. When asked if she knew what a health care proxy was, she was able to stand on her own it is someone you helps you decide when you're not well or dying . She was able to engage in??conversations about how if someone is confused or not well they may not make good decisions. She was able to identify her sons right away as her HCP. Reports she trust her sons especially Ruslan to make decisions for her. ?? Review of Systems 10 point review of systems negative except Pertinent positives as above noted.?? Objective Vital Signs?? Temperature: 97.5 DegF (09/02/23 12:39:00) Temperature Route: Oral (09/02/23 12:39:00) Pulse Rate: 76 bpm (09/02/23 12:39:00) Respiratory Rate: 18 br/min (09/02/23 12:39:00) Systolic Blood Pressure: 125 mm Hg (09/02/23 12:39:00) Diastolic Blood Pressure: 84 mm Hg (09/02/23 12:39:00) Blood pressure sites: Arm, right (09/02/23 12:39:00) Mean Arterial Pressure: 98 mm Hg (09/02/23 12:39:00) Pulse Pressure: 41 mm Hg (09/02/23 12:39:00) Oxygen Saturation: 100 % (09/02/23 12:39:00) Mode of Delivery (Oxygen): Room air (09/02/23 12:39:00) Early Warning Score: 8 (09/02/23 12:40:05) ? Physical Exam ?? Mental Status Exam: Appearance: hospital garb Attitude: cooperative but can become irritable at times Motor activity: calm. ? Mood:?? good ?? Affect: appropriate. ? Speech: fluent, unimpaired. ? Perception: no impairment. ? Orientation: to self only. Memory: poor. ? Judgment: poor. ? Insight: poor. ? Thought process: goal-directed. ? Reliability: poor. ? Suicidality/self-destructive behavior: none. ? Homicidality/violence: none. ?? Assessment/Plan Patient is a 73-year-old female with a past medical history of dementia, hypertension, prior TIA, psoriatic arthritis, prior kidney stone who presented to the ED after an episode of presyncope.? Pt this afternoon presents alert to self only, and a fairly poor historian with low irritabilitythreshold when her memory was questioned.?? Agree that Pt does not have capacity to make disposition or treatment planning but does appear to have capacity to assign HCP. ? Dx:?? Dementia ? Recommendations: -Has capacity to assign HCP ? Histories Allergies Allergies ?(Active and Proposed Allergies Only) Cardizem? (Severity: Unknown severity, Onset: Unknown) PHENobarbital Sodium? (Severity: Unknown severity, Onset: Unknown) ?Reactions: hives penicillins? (Severity: Unknown severity, Onset: Unknown) ?Reactions: hives ? Past Medical History/Problem List Active Problems??(2) Aneurysm Pain ? Past Surgical History No surgery history documented. ? Social History Alcohol Details:??Frequency: 1-2 times per week. Tobacco Details:??Use: Never (less than 100 in lifetime). ? Psychosocial History ? Family History Unable to obtain ? Medications Home Medications Alendronate (alendronate 70 mg oral tablet)?TAKE 1 TABLET BY MOUTH WEEKLY Amlodipine?5?Milligram?By Mouth?Daily Calcium And Vitamin D Combination (Calcium Citrate 315 mg + Vitamin D 250IU Tablet)?2?tab(s)?By Mouth?2 times a day Donepezil (donepezil 5 mg oral tablet)?10?Milligram?2?tablet?By Mouth?Daily at bedtime Infliximab?5?Milligrams/Kilogram?IV Infusion?as an infusion Methotrexate (methotrexate 2.5 mg oral tablet)?4?tab(s)?10?Milligram?By Mouth?Every week ? Inpatient Medications Medications (16) Active SCHEDULED: (3) Amlodipine 5 mg Tablet (amLODIPine 5 mg oral tablet) ??5 mg, By Mouth, Daily Donepezil 10 mg Tablet (donepezil 10 mg oral tablet) ??10 mg, By Mouth, Daily at bedtime NaCl 0.9% Flush 3ml (NaCL 0.9% Flush) ??3 mL, IV Push, Every 8 hours CONTINUOUS: (0) PRN: (13) Acetaminophen 325 mg Tablet (Acetaminophen Tablet) ??650 mg, By Mouth, Every 4 hours Dextrose Inj Syringe (Dextrose 50% Inj Syringe (25Gm)) ??12.5 Gm, IV Push Slowly, Every 20 minutes Dextrose Inj Syringe (Dextrose 50% Inj Syringe (25Gm)) ??25 Gm, IV Push Slowly, Every 15 minutes Docusate Sodium 100 mg Capsule (Docusate Sodium Capsule) ??100 mg 1 capsule, By Mouth, 2 times a day Glucagon 1 mg Inj (Glucagon Inj) ??1 mg, Intramuscular, Once Glucose 40% Gel (15 Gm) (Glucose Gel) ??15 Gm, By Mouth, Every 20 minutes Glucose 40% Gel (15 Gm) (Glucose Gel) ??30 Gm, By Mouth, Every 20 minutes Lidocaine 2% Viscous Solution UD (15mL) (Lidocaine 2% Viscous Liquid) ??10 mL, Swish and Spit, Every 4 hours Melatonin 3 mg Tablet (Melatonin Tablet) ??3 mg, By Mouth, Daily at bedtime NaCl 0.9% Flush 3ml (NaCL 0.9% Flush) ??3 mL, IV Push, Every 8 hours Polyethylene Glycol 17 Gm Powder (MiraLax Powder) ??17 Gm 1 pack/packet, By Mouth, Daily Senna Tablet ??8.6 mg 1 tablet, By Mouth, 2 times a day Trazodone 50 mg Tablet (traZODone 50 mg oral tablet) ??25 mg, By Mouth, 2 times a day ? Results ? CBC, CBC w/Diff?? No qualifying data available. ?? LFT?? No qualifying data available. ?? Urinalysis?? No qualifying data available. ?? * Porsha Nguyễn MD: PERFORM Event Display: Consultation Note Authored Date: [id number] Patient: ??DOMINGO MCKEON ? Age:??73 Years?Sex:??Female?:??1950? Chart reviewed due to triggering of systems-generated psych consult per Dare Suicide Severity Scale??on RN??admission assessment of suicidality. ??No current SI noted on Dare.??Please continue to assess for depression and suicidal ideation, consider placing formal psychiatric consult if warranted.? Note * Haylee Terrell RN: PERFORM Event Display: Discharge/Transfer Note Hospital Authored Date: [id number] Nursing Discharge Note Entered On: 09/08/2023 17:28 EST Performed On: 09/08/2023 17:27 EST by Haylee Terrell RN Nursing Discharge Note 2 Discharge Time : 09/08/2023 16:45 EST Discharge Level of Care at Discharge : custodial facility Discharge Nursing Homes/Rehab Facilities : [facility] Discharge VNA/Hospice/Home Care(w101) : [facility] [phone] Patient Left Unit Via : Chair Van Patient Accompanied Off Unit with : Ambulance/Chair Van Personnel Handover Given to Transport Personnel : Yes DC Instructions Provided & Signed by Pt : Yes Patient Understands D/C Instructions : Yes Patient Instructions Discharge Signed : Yes Did Pt have Specialty Bed or Wound Vac : No Haylee Terrell RN - 09/08/2023 17:27 EST * Kashif Montgomery MD: PERFORM Event Display: Discharge/Transfer Note Hospital Authored Date: [id number] Patient: ??DOMINGO MCKEON ? Age:??73 Years?Sex:??Female?:??1950?? Patient Information Discharge Location: Primary Care Physician: Eloina Eddy MD Admit Date/Time: 08/27/23 12:22 Discharge Disposition Discharge Disposition: Nursing Home Facility/Rehab Discharge Diagnosis Lightheaded (R42) Postural dizziness with presyncope (R42) Hypertension (I10) Dementia (F03.90) Psoriatic arthritis (L40.50) Delirium (R41.0) Thrombocytopenia (D69.6) ?? _ Discharge Medications Amlodipine?5?Milligram?By Mouth?Daily Calcium And Vitamin D Combination (Calcium Citrate 315 mg + Vitamin D 250IU Tablet)?2?tab(s)?By Mouth?2 times a day Donepezil (donepezil 5 mg oral tablet)?10?Milligram?2?tablet?By Mouth?Daily at bedtime Infliximab?5?Milligrams/Kilogram?IV Infusion?as an infusion Melatonin (melatonin 3 mg oral tablet)?3?Milligram?By Mouth?Daily at bedtime?as needed?Insomnia Methotrexate (methotrexate 2.5 mg oral tablet)?4?tab(s)?10?Milligram?By Mouth?Every week Polyethylene Glycol 3350 (MiraLax Powder)?1?pack/packet?17?gram?By Mouth?Daily?as needed?Constipation Senna (Senna 8.6 mg oral tablet)?17.2?Milligram?2?tab(s)?By Mouth?Daily ? Medications Started ?? Melatonin (melatonin 3 mg oral tablet)?3?Milligram?By Mouth?Daily at bedtime?as needed?Insomnia Polyethylene Glycol 3350 (MiraLax Powder)?1?pack/packet?17?gram?By Mouth?Daily?as needed?Constipation Senna (Senna 8.6 mg oral tablet)?17.2?Milligram?2?tab(s)?By Mouth?Daily Medications Discontinued None Doses Changed None PCP Follow-Up/Heads-Up -Pt reported that she has not been taking alendronate therefore it was not continued to on discharge. Encourage discussion w PCP and resumption if indicated. Hospital Course Domingo Mckeon is a 73-year-old female with a past medical history of dementia, hypertension, prior TIA, psoriatic arthritis, prior kidney stone who presented to the ED after an episode of presyncope. Patient herself did not remember the episode. EKG initially showed new incomplete RBBB as well as septal infarct which was new from prior.??Echocardiogram showing mildly increased LV wall thickness but otherwise normal cardiac architecture. Orthostatic vitals were initially positive but after some rehydration were negative. Overall, pt improved throughout her hospitalization. She did suffer from an isolated episode of agitation in the context of delirium, however this resolved promptly and pt returned to her baseline level of cognition in the setting of underlying dementia. Notably, platelets were low throughout visit; this is likely d/t chronic use of methotrexate and infliximab for psoriatic arthritis. She is clinically stable and ready for discharge to rehab.? Dementia (F03.90) Delirium (R41.0):??resolved Recs -Continue??home donepezil??10 mg daily -non-pharmacologic delirium precautions -encourage family to be at the bedside as much as possible -keep window curtains open/keep room bright during the day -out of bed to chair during the day, especially for meals -avoid use of restraints and antipsychotic medications -avoid opiates, benzodiazepines, antihistamines and other anticholinergic agents as much as possible? Lightheaded (R42):?? Postural dizziness with presyncope (R42):??Patient presented with episode of presyncope. She herself does not remember the episode. EKG showing sinus rhythm, left axis deviation, new incomplete right bundle branch block as well as septal infarct which is new from prior. No clear cause of syncope however. Orthostatic vitals were initially positive, subsequently negative. Low concern for seizure. Orthostatic vitals negative as of 08/29, possibly d/t to rehydration. Echo showed normal LV size with only mild wall thickening, normal RV. No overt abnormalities to explain presyncope. PT??eval complete Recs -Encourage PT ?? Hypertension (I10):?? Was only on amlodipine 5 mg daily at home but it seems she has not been taking this for a long time. Bp well controlled on home dose Recs ??? Continue amlodipine 5 mg daily ? Thrombocytopenia (D69.6):??Platelets ranging between 30-36 since admission Platelets currently lower than most recent baseline during previous hospitalization which was closer to 70s. No anemia present but hemolysis labs were obtained which showed low haptoglobin, normal LDH, and normal reticulocyte count. With haptoglobin does suggest hemolysis but otherwise normal findings. May be due to use of methotrexate. Recs -Intermittent monitoring as outpatient ?? Hypophosphatemia Hypokalemia Possibly d/t malnutrition - Repleted ?? Psoriatic arthritis (L40.50):??Continue to monitor ? Objective Vital Signs?? Temperature: 98 DegF (09/08/23 04:57:00) Temperature Route: Oral (09/08/23 04:57:00) Pulse Rate: 58 bpm (09/08/23 04:57:00) Respiratory Rate: 18 br/min (09/08/23 04:57:00) Systolic Blood Pressure:??139 mm Hg??High (09/08/23 09:03:00) Diastolic Blood Pressure: 68 mm Hg (09/08/23 09:03:00) Blood pressure sites: Arm, right (09/08/23 04:57:00) Mean Arterial Pressure: 91 mm Hg (09/08/23 04:57:00) Pulse Pressure: 54 mm Hg (09/08/23 04:57:00) Oxygen Saturation: 98 % (09/08/23 04:57:00) Mode of Delivery (Oxygen): Room air (09/08/23 04:57:00) Early Warning Score: 6 (09/08/23 09:05:34) ? . Physical Exam General Appearance: The patient is in NAD. Cardiovascular: RRR S1 and S2 heard with no M/R/G. No JVD. Respiratory: ??Breath sounds clear to auscultation bilaterally. No wheezing. Good air movement throughout both lungs. GI: Soft. Nontender and nondistended. Normal bowel sounds present throughout abdomen.?? MS: ??No edema or erythema in the lower extremities. No wounds seen on the feet. Peripheral sensation intact.?? Neuro: ??No slurred speech. ??Patient seen moving their upper and lower extremities independently. Psych: Alert and oriented x2.?? Consultants Dr. Kely Jennings, Psych Patient Education Titles Caring for a Person with Delirium?? Dementia and Caregiver Support?? Follow-Up Appointments Added Follow Up ?Time Frame ?Comments Surjit LEROY, Eloina Whitehead?4 to 5 weeks Results Discharge Labs BLOOD COUNT & DIFF WBC 3.8 k/mm3 (Low)?? 09/07/2023 05:07 RBC 3.98 m/mm3 (Low)?? 09/07/2023 05:07 Hgb 12.4 Gm/dL ()?? 09/07/2023 05:07 Hct 37.1 % ()?? 09/07/2023 05:07 MCV 93.2 femtoliters ()?? 09/07/2023 05:07 MCH 31.2 pg ()?? 09/07/2023 05:07 MCHC 33.4 g/dL ()?? 09/07/2023 05:07 Platelet Count 88 k/mm3 (Low)?? 09/07/2023 05:07 RDW-SD 42.5 femtoliters ()?? 09/07/2023 05:07 MPV 11.6 femtoliters ()?? 09/07/2023 05:07 Nucleated RBC (Automated) 0.0 #/100 WBC'S ()?? 09/07/2023 05:07 Abs. NRBC 0.0 k/mm3 ()?? 09/07/2023 05:07 Abs. Neut 1.7 k/mm3 ()?? 08/29/2023 02:15 Abs. Lymph 1.6 k/mm3 ()?? 08/29/2023 02:15 Abs. Lancaster 0.2 k/mm3 (Low)?? 08/29/2023 02:15 Abs. Eo 0.1 k/mm3 ()?? 08/29/2023 02:15 Abs. Baso 0.0 k/mm3 ()?? 08/29/2023 02:15 Neut % 46.0 % ()?? 08/29/2023 02:15 Lymph % 44.0 % (High)?? 08/29/2023 02:15 Lancaster % 5.0 % ()?? 08/29/2023 02:15 Eos % 4.0 % ()?? 08/29/2023 02:15 Baso % 1.0 % ()?? 08/29/2023 02:15 Band % 13.7 % (High)?? 08/25/2023 16:13 Atypical Lymph % 1.0 % ()?? 08/28/2023 00:03 RBC Morphology FEW ()?? 08/28/2023 00:03 WBC Morphology MODERATE ()?? 08/29/2023 02:15 Platelet Estimate DECREASED ()?? 08/29/2023 02:15 Retic Count 1.2 % ()?? 08/28/2023 00:03 Retic Count Corrected 1.1 % ()?? 08/28/2023 00:03 Retic Production Index 1.1 % ()?? 08/28/2023 00:03 ?? CARDIAC High Sensitivity Troponin (HSTnT) 25 ng/L (High)?? 08/26/2023 09:42 ? CHEM GENERAL Sodium 143 mmol/L ()?? 09/08/2023 07:46 Potassium 3.7 mmol/L ()?? 09/08/2023 07:46 Chloride 114 mmol/L (High)?? 09/08/2023 07:46 Bicarbonate Level 24 mmol/L ()?? 09/08/2023 07:46 Anion Gap 5 ()?? 09/08/2023 07:46 Glucose Level 72 mg/dL ()?? 09/07/2023 05:11 Glucose, POC 72 mg/dL ()?? 08/28/2023 03:25 BUN 12 mg/dL ()?? 09/07/2023 05:11 Creatinine-Blood 0.9 mg/dL ()?? 09/07/2023 05:11 Estimated GFR Creatinine 65 ML/MIN/1.73 M2 ()?? 09/07/2023 05:11 Calcium 8.3 mg/dL (Low)?? 09/07/2023 05:11 Phosphorus 2.6 mg/dL ()?? 09/01/2023 00:58 Magnesium 1.7 mg/dL ()?? 09/01/2023 00:58 Protein, Total 7.4 Gm/dL ()?? 09/01/2023 00:58 Albumin 2.4 Gm/dL (Low)?? 09/01/2023 00:58 AG Ratio 0.5 ()?? 08/28/2023 00:03 LDH 239 units/L ()?? 08/28/2023 00:03 Alkaline Phosphatase 59 units/L ()?? 09/01/2023 00:58 Lipase 53 units/L ()?? 08/25/2023 16:13 AST (SGOT) 32 units/L ()?? 09/01/2023 00:58 ALT (SGPT) 16 units/L ()?? 09/01/2023 00:58 Bilirubin, Total 1.6 mg/dL (High)?? 09/01/2023 00:58 Bilirubin, Direct 0.5 mg/dL (High)?? 09/01/2023 00:58 Bilirubin, Indirect 1.1 mg/dL (High)?? 09/01/2023 00:58 ?? IMMUNOLOGY GENERAL Haptoglobin <10 mg/dL (Low)?? 08/28/2023 00:03 ? MISC. CHEMISTRY Ammonia, Venous 23 ??mole/L ()?? 08/27/2023 06:46 ? UA/URINALYSIS Appear/Color, Urine YELLOW ()?? 08/27/2023 03:53 Specific Garibaldi, Urine 1.015 ()?? 08/27/2023 03:53 pH, Urine 7.0 ()?? 08/27/2023 03:53 Albumin, Urine 1+ (Abnormal)?? 08/27/2023 03:53 Glucose, Urine NEGATIVE ()?? 08/27/2023 03:53 Ketones, Urine NEGATIVE ()?? 08/27/2023 03:53 Bilirubin, Urine NEGATIVE ()?? 08/27/2023 03:53 Hemoglobin, Urine NEGATIVE ()?? 08/27/2023 03:53 Nitrite, Urine POSITIVE (Abnormal)?? 08/27/2023 03:53 Leukocyte, Urine NEGATIVE ()?? 08/27/2023 03:53 Urobilinogen 6 mg/dL (Abnormal)?? 08/27/2023 03:53 WBC's, Urine 1 /HPF ()?? 08/27/2023 03:53 RBC's, Urine 1 /HPF ()?? 08/27/2023 03:53 Bacteria SLIGHT HPF (Abnormal)?? 08/27/2023 03:53 Squamous Epith <1 /HPF ()?? 08/27/2023 03:53 Amorphous Crystals SLIGHT /HPF ()?? 08/27/2023 03:53 Mucus SLIGHT /LPF ()?? 08/27/2023 03:53 ? URINE OTHER Est Creatinine Clearance 42.35 mL/min ()?? 09/01/2023 02:35 ? VIROLOGY Influenza A PCR NEGATIVE ()?? 09/05/2023 11:00 Influenza B PCR NEGATIVE ()?? 09/05/2023 11:00 RSV PCR NEGATIVE ()?? 09/05/2023 11:00 COVID-19 PCR Specimen Source NASAL ()?? 09/05/2023 11:00 COVID-19 PCR Result NEGATIVE ()?? 09/05/2023 11:00 ?Patient care discussed with attending physician Dr. Armando ?? Kashif Montgomery Internal Medicine, PGY-IV 74028?? _ minutes spent on discharge * Bety Armando MD: PERFORM Event Display: Discharge/Transfer Note Hospital Authored Date: [id number] Attending Attestation:??I have seen and??evaluated this??patient independently. ??I have also discussed the case and its management with Dr. Montgomery (chief resident and randal faculty attending on-service) and agree with the findings and plan as documented in the resident???s note. * Kashif Montgomery MD: PERFORM Event Display: Discharge/Transfer Note Hospital Authored Date: [id number] Infliximab infusion is a chronic medication that the patient does not have to receive at the facility, it can be deferred to a later date per the patient's PCP. * Phuong Skaggs RN: PERFORM Event Display: Patient Education/Instruction Authored Date: [id number] Inpatient Adult Discharge Instructions [place] [id number] Name: DOMINGO MCKEON : 1950 Visit: 08/27/2023 12:22:00 Current Date: 09/08/2023 13:51 Account: [id number] Inpatient Adult Discharge Instructions We would like to thank you for allowing us to assist you with your healthcare needs. The following includes patient education materials and information regarding your injury/illness. Our entire staffstrives to provide an excellent experience for our patients and their families. PLEASE ENSURE YOU FOLLOW-UP PER THE INSTRUCTIONS BELOW! ?? YOUR OPINION IS IMPORTANT TO US! Please complete the survey you may receive by mail or email. Your feedback will be used to make improvements to the healthcare experiences of our patients and their families. Surveys are administered by [employer] ?? If further treatment with your primary care physician or another doctor is recommended, it is important for you to keep the appointment. Call your primary care physician or return to the Emergency Department immediately if your condition worsens, fails to improve, or new symptoms develop. If you need to find a doctor, you can call [facility] for a referral at [phone] or toll free at [phone] ([phone]) or log in to [email or web address].. ?? [facility], in keeping with [facility] guidance, no longer requires face masks for staff, patientsor visitors in most situations. Similiar to time spent indoors at other locations, there is the chance that you were exposed to repiratory viruses during your time with us (such as flu or COVID-19). If you develop symptoms concerning for a viral respiratory infection, please seek testing (and treatment if indicated) from your medical provider or home test kit. ?? You can view and manage your care through the patient portal or by using a health care brittany of your choosing. [employer] is a website that allows you to securely view your medical information including your hospital discharge summary, office visit summaries, medications and follow-up visits. You can also request appointments, renew medications, and request access to your medical information using a health care brittany of your choosing, or just ask a question. You can enroll at [email or web address] or register during your next office visit. You have been discharged from [facility], Patient Care Unit: S2. If you have any questions regarding these instructions after you leave, please call us and we will be happy to assist you. [facility] Your Care Team Attending Physician Tr LEROY, Bety Consulting Providers Gopi LEROY, Porsha Discharging Providers Ulises LEROY, Kashif Reason for Admission sync event at assisted living [facility], lowered to the ground, pt did vomit, recent OR few months ago Your Diagnosis Lightheaded Hypertension Dementia Psoriatic arthritis Thrombocytopenia Delirium Postural dizziness with presyncope Tests Performed Below is a partial list of the tests performed during your hospitalization. You may have had other tests and procedures not included in this list. Please discuss all test results with your provider. Alk Phos ALT Ammonia Venous AST Basic Metabolic Panel Bilirubin Total + Direct BUN CBC CBC w/ Differential Comprehensive Metabolic Panel COVID-19, RSV, and Flu A/B, Rapid PCR Creatinine GLUCOSE POC HAPTOGLOBIN HEPATIC FUNCTION PANEL High??Sensitivity??Troponin T LDH LFT's Lipase Lytes Magnesium Level Mg Level Phosphorus Level RETICULOCYTE COUNT Troponin T, High Sensitivity UA Primary Care Provider Surjit LEROY, Eloina Whitehead Advance Directive Health Care Proxy on File Yes - Health Care Proxy Discharge Vitals Temperature: 97.7 DegF Height: 157 cm Pulse Rate: 67 bpm Weight: 67.5 kg Respiratory Rate: 19 br/min Body Mass Index:??27.38 kg/m2??High Systolic Blood Pressure: 125 mm Hg Body surface area: 1.72 Diastolic Blood Pressure: 65 mm Hg ?? Oxygen Saturation: 94 % ?? Studies Pending All tests and labs ordered during this hospital stay have been completed unless listed below. Please discuss all pending results with your provider listed above in these instructions. ?? Add On Lab Order What to do next Instructions From Your Doctor Discharge Orders You Need to Schedule the Following Appointments Follow Up with??Surjit LEROY, Eloina Whitehead When:??Within 4 to 5 weeks Where: [address] [place] [id number] Discharge Medications DOMINGO MCKEON :1950 Visit Date:08/27/2023 Medications: Please continue your medications until treatment is completed or stopped by your provider. Medications not listed below should be discontinued. Discuss any questions related to medications with your provider. What How Much When Instructions Next Dose New Melatonin (melatonin 3 mg oral tablet) 3 Milligram Oral Daily at Bedtime as needed for Insomnia Daily at night as needed as needed New Polyethylene Glycol 3350 (MiraLax Powder) 17 gram Oral Daily as needed for Constipation Daily as needed as needed New Senna (Senna 8.6 mg oral tablet) 2 tab(s) Oral Daily Daily 09/09/23 Unchanged Amlodipine 5 Milligram Oral Daily Daily 09/09/23 Unchanged Calcium And Vitamin D Combination (Calcium Citrate 315 mg + Vitamin D 250IU Tablet) 2 tab(s) Oral Twice a day Two times a day 09/08/23 pm Unchanged Donepezil (donepezil 5 mg oral tablet) 2 tab(s) Oral Daily at Bedtime Daily at night 09/08/23 pm Unchanged Infliximab 5 Milligrams/Kilogram Intravenous Infusion as an infusion ?? as directed Unchanged Methotrexate (methotrexate 2.5 mg oral tablet) 4 tab(s) Oral Every week weekly as directed ?? What How Much When Comments Stop Taking Alendronate (alendronate 70 mg oral tablet) TAKE 1 TABLET BY MOUTH WEEKLY ?? Stop Taking apixaban (Eliquis Starter Pack 5 mg oral tablet) 2 tab(s) Oral Twice a day Duration: 7 Days followed by 1 tablet by mouth twice daily for 23 days ?? Stop Taking Aspirin (aspirin 81 mg oral tablet) 1 tab(s) Oral Daily Stop Taking Calcium Citrate (Calcium Citrate Tablet) Stop Taking Cetirizine (Zyrtec 10 mg oral tablet) 1 tab(s) Oral Daily Stop Taking Cholecalciferol (Vitamin D3 1000 intl units oral capsule) 1 capsule Oral Daily Stop Taking Folic Acid (folic acid 1 mg oral tablet) 1 tab(s) Oral Daily Stop Taking Hydrochlorothiazide 25 Milligram Oral Daily Stop Taking Ibuprofen (Motrin Tablet) 800 Milligram Oral 4 times a day as needed for Pain , Mild Stop Taking Meclizine Oral 3 times a day Stop Taking Pantoprazole (pantoprazole 40 mg oral delayed release tablet) 1 tab(s) Oral Daily Stop Taking PredniSONE (predniSONE 5 mg oral tablet) See instructions 1 tablet By Mouth 2 times a day for ??Will need to follow with Dr. Washburn at [facility] with food or milk ?? Test Results Below is a partial list of the most recent Laboratory test results done prior to this discharge. You may have had other tests and procedures not included in this list. Please discuss all test resultswith your provider. Est Creatinine Clearance - 42.35 mL/min (09/01/2023) Alk Phos (08/29/2023) ???Alkaline Phosphatase - 58 units/L ALT (08/29/2023) ???ALT (SGPT) - 20 units/L Ammonia Venous (08/27/2023) ???Ammonia, Venous - 23 ??mole/L AST (08/29/2023) ???AST (SGOT) - 36 units/L Basic Metabolic Panel (09/07/2023) ???Sodium - 140 mmol/L???Potassium - 3.4 mmol/L???Chloride - 111 mmol/L???Bicarbonate Level - 22 mmol/L???Anion Gap - 7???Glucose Level - 72 mg/dL???BUN - 12 mg/dL???Creatinine-Blood - 0.9 mg/dL???Estimated GFR Creatinine - 65 ML/MIN/1.73 M2???Calcium - 8.3 mg/dL Bilirubin Total + Direct (08/29/2023) ???Bilirubin, Total - 1.0 mg/dL???Bilirubin, Direct - 0.3 mg/dL???Bilirubin, Indirect - 0.7 mg/dL BUN (08/29/2023) ???BUN - 13 mg/dL CBC (09/07/2023) ???WBC - 3.8 k/mm3???RBC - 3.98 m/mm3???Hgb - 12.4 Gm/dL???Hct - 37.1 %???MCV - 93.2 femtoliters???MCH - 31.2 pg???MCHC - 33.4 g/dL???Platelet Count - 88 k/mm3???RDW-SD - 42.5 femtoliters???MPV - 11.6 femtoliters???Nucleated RBC (Automated) - 0.0 #/100 WBC'S???Abs. NRBC - 0.0 k/mm3 CBC w/ Differential (08/29/2023) ???WBC - 3.6 k/mm3???RBC - 4.14 m/mm3???Hgb - 13.5 Gm/dL???Hct - 39.0 %???MCV - 94.2 femtoliters???MCH - 32.6 pg???MCHC - 34.6 g/dL???Platelet Count - 43 k/mm3???RDW-SD - 43.8 femtoliters???MPV - 13.8 femtoliters???Nucleated RBC (Automated) - 0.0 #/100 WBC'S???Abs. NRBC - 0.0 k/mm3???Abs. Neut - 1.7 k/mm3???Abs. Lymph - 1.6 k/mm3???Abs. Lancaster - 0.2 k/mm3???Abs. Eo - 0.1 k/mm3???Abs. Baso - 0.0 k/mm3???Neut % - 46.0 %???Lymph % - 44.0 %???Lancaster % - 5.0 %???Eos % - 4.0 %???Baso % - 1.0 %???WBC Morphology - MODERATE???Platelet Estimate - DECREASED Comprehensive Metabolic Panel (08/28/2023) ???Sodium - 138 mmol/L???Potassium - 3.5 mmol/L???Chloride - 109 mmol/L???Bicarbonate Level - 22 mmol/L???Anion Gap - 7???Glucose Level - 64 mg/dL???BUN - 16 mg/dL???Creatinine-Blood - 0.9 mg/dL???Estimated GFR Creatinine - 67 ML/MIN/1.73 M2???Calcium - 7.9 mg/dL???Protein, Total - 6.7 Gm/dL???Albumin - 2.2 Gm/dL???AG Ratio - 0.5???Alkaline Phosphatase - 54 units/L???AST (SGOT) - 49 units/L???ALT(SGPT) - 20 units/L???Bilirubin, Total - 1.3 mg/dL COVID-19, RSV, and Flu A/B, Rapid PCR (09/05/2023) ???Influenza A PCR - NEGATIVE???Influenza B PCR - NEGATIVE???RSV PCR - NEGATIVE???COVID-19 PCR Specimen Source - NASAL???COVID-19 PCR Result - NEGATIVE Creatinine (08/29/2023) ???Creatinine-Blood - 0.9 mg/dL???Estimated GFR Creatinine - 63 ML/MIN/1.73 M2 GLUCOSE POC (08/28/2023) ???Glucose, POC - 72 mg/dL HAPTOGLOBIN (08/28/2023) ? ?Haptoglobin - <10 mg/dL HEPATIC FUNCTION PANEL (08/30/2023) ???Protein, Total - 7.2 Gm/dL???Albumin - 2.3 Gm/dL???Alkaline Phosphatase - 58 units/L???AST (SGOT) - 38 units/L???ALT (SGPT) - 19 units/L???Bilirubin, Total - 1.3 mg/dL???Bilirubin, Direct - 0.4 mg/dL???Bilirubin, Indirect - 0.9 mg/dL High??Sensitivity??Troponin T (08/25/2023) ???High Sensitivity Troponin (HSTnT) - 25 ng/L LDH (08/28/2023) ???LDH - 239 units/L LFT's (09/01/2023) ???Protein, Total - 7.4 Gm/dL???Albumin - 2.4 Gm/dL???Alkaline Phosphatase - 59 units/L???AST (SGOT) - 32 units/L???ALT (SGPT) - 16 units/L???Bilirubin, Total - 1.6 mg/dL???Bilirubin, Direct - 0.5 mg/dL???Bilirubin, Indirect - 1.1 mg/dL Lipase (08/25/2023) ???Lipase - 53 units/L Lytes (09/08/2023) ???Sodium - 143 mmol/L???Potassium - 3.7 mmol/L???Chloride - 114 mmol/L???Bicarbonate Level - 24 mmol/L???Anion Gap - 5 Magnesium Level (09/01/2023) ???Magnesium - 1.7 mg/dL Mg Level (08/27/2023) ???Magnesium - 1.7 mg/dL Phosphorus Level (09/01/2023) ???Phosphorus - 2.6 mg/dL RETICULOCYTE COUNT (08/28/2023) ???Retic Count - 1.2 %???Retic Count Corrected - 1.1 %???Retic Production Index - 1.1 % Troponin T, High Sensitivity (08/26/2023) ???High Sensitivity Troponin (HSTnT) - 25 ng/L UA (08/27/2023) ???Appear/Color, Urine - YELLOW???Specific Garibaldi, Urine - 1.015???pH, Urine - 7.0???Albumin, Urine - 1+???Glucose, Urine - NEGATIVE???Ketones, Urine - NEGATIVE???Bilirubin, Urine - NEGATIVE???Hemoglobin, Urine - NEGATIVE???Nitrite, Urine - POSITIVE???Leukocyte, Urine - NEGATIVE???Urobilinogen - 6mg/dL? ?WBC's, Urine - 1 /HPF? ?RBC's, Urine - 1 /HPF? ?Bacteria - SLIGHT? ?Squamous Epith - <1 /HPF???Amorphous Crystals - SLIGHT???Mucus - SLIGHT Immunizations This Visit Not Given Vaccine Commentsinfluenza virus vaccine, inactivated Patient Refuses Allergies (NKA means No Known Allergies) Cardizem PHENobarbital Sodium??(hives) penicillins??(hives) Problems Active Problems??(2) Aneurysm?? Pain?? Education Materials Below is the list of Educational Leaflet Providered with your Discharge Instructions. Caring for a Person with Delirium?? Dementia and Caregiver Support?? Valuables and Belongings I fully understand and agree that [facility] accepts no responsibility for all my personal property including clothing, toilet articles, radios, jewelry, dentures, hearing aids, rings, money, or any other property that is in my possession or is brought to me after admission. I understand certain valuables may be placed in a hospital safe for a short period of time. I understand that the hospital is not liable for loss or damage due to accident, fire, or other natural occurrence while said property is in the safe. I accept full responsibility for any personal property that I keep with me, and will not hold the hospital responsible in case of loss or disappearance. I acknowledge that i have been encouraged to send valuables and belongings home. ?? Review of Valuable and Belonging List: With patient Date for Pt to Sign Valuables/Belongings: 08/27/23 09:24:00 ?? Other Discharge Information ? Case Management Discharge Plan?? Discharge Plan?? Discharge Agency Information?? Discharge Level of Care at Discharge: custodial facility Name of Agency #1: [facility] Discharge Transportation Arranged: [facility] [address] [facility] [id number] [phone] Service Categories #1: Physical Therapy, Nursing Home Mode of Transportation Arranged: [facility] Comments #1: You have been set up with homecare services, please allow the agency 24-48 hours to contact you in regards to your first appointment, if you do not hear from them in this timeframe please call the agency. Thank you Discharge Nursing Homes/Rehab Facilities: [facility] ?? Discharge VNA/Hospice/Home Care: [facility] [phone] ? Pulmonary Rehab Status?? Pulmonary Rehab Discharge Status?? Respiratory Rate: 19 br/min ? Common Emergency Awareness Tips IS IT A STROKE? Act FAST and Check for these signs: FACE Does the face look uneven? ARM Does one arm drift down? SPEECH Does their speech sound strange? TIME Call at any sign of stroke ?? Heart Attack Signs Chest discomfort: Most heart attacks involve discomfort in the center of the chest and lasts more than a few minutes, or goes away and comes back. It can feel like uncomfortable pressure, squeezing, fullness or pain. Discomfort in upper body: Symptoms can include pain or discomfort in one or both arms, back, neck, jaw or stomach. Shortness of breath: With or without discomfort. Other signs: Breaking out in a cold sweat, nausea, or lightheaded. Remember, MINUTES DO MATTER. If you experience any of these heart attack warning signs, call to get immediate medical attention! ?? Smoking can increase your chances of developing chronic health problems and can cause harmful effects to other family members in your house. If you smoke, you are strongly encouraged to quit. Please call [facility] [employer] at [phone] or [phone]) or log in to [email or web address] for referrals to smoking cessation programs. ?? 525 Suicide & Crisis Lifeline is available 07/03 if you or someone you know needs to find a reason to keep living. By calling 829 you'll be connected to a skilled, trained counselor at a crisis center in your area. INPATIENT DISCHARGE INSTRUCTIONS SIGNATURE PAGE DOMINGO MCKEON Location:[facility] Registration Date and Time:08/27/2023 12:22 [facility] Primary Care Physician: Eloina Eddy MD, Attending Physician: Bety Armando MD, I RIZWAN MCKEONI, have received the above patient education materials/instructions and have verbalized understanding. If ambulance or transport services are being used I further acknowledge being given a choice of service. ?? If you need to contact me, please call me at this number: . Patient/Consumer Safety Officer Name: Patient/Consumer Safety Officer Signature: Relationship to Patient: Witness Name/Signature: Date: * Kashif Montgomery MD: PERFORM Event Display: Patient Education Leaflets Authored Date: [id number] Caring for a Person with Delirium ?? [id number] Caring for a Person with Delirium Delirium is very common in people with advanced illness. With delirium, people have times when they're suddenly confused and unaware of what's going on around them. They may become agitated and restless or withdrawn. Delirium can be very upsetting for family members to watch. If your loved one develops signs of delirium, let their healthcare provider know right away. In some cases, the cause of the delirium can be treated. In others, steps can be taken to help manage delirium and ensure your loved one???s safety and comfort. With delirium, there may be times when your loved one is restless and agitated or quiet and withdrawn. What are common causes of delirium? Delirium often has multiple causes. These can include: ??? Medicines ??? Serious or life-limiting illness or infections ??? Changes in environment such as being hospitalized ??? Drug and alcohol abuse or withdrawal ??? Electrolyte imbalance ??? Pain ??? Other problems, like anemia or nutrition deficiency ??? Lack of enough oxygen ??? Failure of organs such as the liver or kidneys ??? Unrecognizedseizures ?? What are the types and symptoms of delirium? There are 2 main types of delirium: Hypoactive and hyperactive. People can have 1 or both types: ??? Hypoactive. In a hypoactive state, people are sleepy and withdrawn. They may show little interest in their surroundings. ??? Hyperactive. In a hyperactive state, people are excitable and agitated. They may become violent. And they may believe in or see things that aren???t there. Most people with delirium will also have the following symptoms: ??? Changes in sleep patterns ??? Confusion about time and place (disorientation) ??? Wandering attention ??? Disorganized thinking ??? Problems with memory and speech ??? Changes in mood or personality ??? Hallucinations ?? How is delirium treated? Your loved one???s healthcare provider and healthcare team will try to find the cause of the delirium and treat it, if possible. Sometimes the cause can't be found. Or treatment may be available, butit may be too much of a burden at this point in their illness. In such cases, the main goal of treatment is to manage the delirium and keep your loved one safe and comfortable. You may be told to do the following: ??? Provide safe and familiar surroundings. Keep your loved one???s room clean and well-lit. Have familiar objects nearby, like a favorite blanket and family photos. Add a clock next tothe bed and a calendar on the wall to help your loved one keep track of time. ??? Limit contact with strangers. Try to make sure that your loved one receives care from the same healthcare providers or caregivers. Keep visitors restricted to family members or close friends to reduce confusion. ??? Have a regular day and night schedule. During the day, open blinds and windows or keep the lights on to encourage your loved one to stay awake and alert. During the night, dim the lights and keep noise levels low to encourage sleep. ??? Expect sudden changes in behavior. There may be times when your loved one is normal and alert. But other times they aren't fully present. Your loved one may forget who you are. They may also imagine things or speak to people who aren???t there. Try to stay calm during these episodes. It may help to provide a gentle touch or reassuring words. Or you may choose not to speak and simply listen. ??? Use positive language. Try not to raise your voice or argue with your loved one. Keep conversations simple. If your loved one is confused, state simply and calmly where they are and what's going on. ??? Minimize the use of restraints and encourage movement as soon as possible. These can make a person more anxious, afraid, or angry and increase confusion. If needed, arrange for a 24-hour caregiver or nurse, so your loved one is never left alone. Or take turns sitting next to the person???s bedside with other family members and friends. ??? Alert the healthcare provider if your loved one???s delirium gets worse. If needed, medicine can be prescribed to help your loved one sleep or stay calm. ?? Treatment of delirium as nears Treatment of delirium may change when your loved one is near . The healthcare provider and healthcare team can help prepare you for what to expect in the last days of life. If delirium is severe, ask the healthcare provider about choices for keeping your loved one comfortable. Don???t be afraid to ask questions or get help at this time. If more support is needed, other healthcare team members, like a social work therapist or energy audit advisor, can help. ?? Helpful tips for preventing delirium Tips to help prevent delirium include: ??? Use visual and hearing aids as needed ??? Manage pain ??? Keep??watch for the use of certain medicines or avoid them altogether. Certain medicines can trigger delirium. ??? Prevent medical complications??or treat them if they happen. Some medical conditions are known to cause or worsen delirium. ?? Delirium and the caregiver Caregivers of people with delirium play an important role that has 3 parts: ??? They try to prevent delirium and spot it if it happens. ??? They act as advocates for their loved ones. ??? They help to keep watch for symptoms. But caring for people with delirium can take its toll on caregivers. They need support to cope withthe stress and emotions of providing such care. If you're a caregiver to a person with delirium, you may find a support group or educational materials helpful during this stressful and emotional time. ?? Last Reviewed Date: 2021 ?? The [employer]. All rights reserved. This information is not intended as a substitute for professional medical care. Always follow your healthcare professional's instructions. ?? * Kashif Montgomery MD: PERFORM Event Display: Patient Education Leaflets Authored Date: [id number] Dementia and Caregiver Support ?? [id number] Dementia and Caregiver Support Dementia is a long-term (chronic) condition that affects the brain. It causes loss of memory and thinking functions. Some forms of dementia are from degeneration of the brain. They get worse with time. Other forms stay the same for long periods of time. A person with dementia may have trouble recognizing familiar people and places, or knowing what day it is. The person???s memory, judgment, and decision-making may also be affected. In severe cases, the person may not respond when someone talks to them. The most common form of dementia is Alzheimer disease (AD). Healthcare providers don???t fully understand what causes AD. It has no cure. But medicines can treat some of the symptoms. Some of the less common causes for dementia are curable. So it???s important to have a complete health assessment to look for conditions that can be treated. Home care These tips can help you care for a person with dementia at home: ??? A responsible person must be with the person who has advanced dementia at all times.??They should not be left alone or unsupervised. ??? In the case of advanced dementia, keep all medicines in a secure place. They should be under the caregiver???s control. A person with advanced dementia shouldnot be allowed to take their own medicines. This needs to be supervised by the caregiver. Here are ways to help a person with dementia: Activities Keep to a daily routine. Changes in routine can cause stress for someone with dementia. Make a schedule for common daily tasks. These include bathing, dressing, taking medicines, eating meals, going for walks, and going to bed. Communication When talking with a person with dementia, talk slowly and clearly. Use a gentle tone of voice. Choose short, simple words and sentences. Ask 1 question at a time. Don???t interrupt, criticize, or argue. Be calm and supportive. Use friendly facial expressions. Use pointing and touching to help communicate. If the person has a loss of long-term memory, don???t ask questions about past events. Instead, talk about what's happening now. Behavioral tips Use lists, signs, family photos, clocks, and calendars as memory aids. Label cabinets and drawers. Try to distract, not confront, the person. When they become frustrated or upset, direct the person???s attention to eating or some other interesting activity. Windows can help the person know if it's night or day and what season it is. Medical-legal tips Talk with your healthcare provider or rangelands conservation laborer about getting a power of title attorney for healthcare and for financial decisions. It's best to do this while the person can still sign legal documents and make their own legal decisions. Otherwise, you'll need a court order. ?? Support for the caregiver As the caregiver, you'll need a lot of support for yourself. Caring for a person with dementia is afull-time job. It can drain your emotions and lead to frustration and anger toward the one you love. It is common to have feelings of grief over losing the relationship that you once had. As a caregiver to someone with dementia, you are at higher risk for depression, anxiety, and stress. Here are some tips to help you cope with being a caregiver: ??? Learn about dementia and AD so you know what to expect. ??? Find out about the resources in your community, including adult daycare programs. Ask your healthcare provider for a referral to a social work therapist, if needed. ??? Take care of yourself with a healthy diet, exercise, and plenty of rest. ??? Ask for help. Share some of the caregiver duties with family and friends. ??? Make personal time for yourself. This is vital. Consider hiring an in-home sitter or home health aide. ??? Get counseling or join a caregiver???s support group. Don't isolate yourself or try to cope with this alone. In a support group, you can learn from others in a similar situation. ??? Visit the Alzheimer???s Association website at www.alz.org for more information. ?? Follow-up care Follow up with the person???s healthcare provider, or as advised. ?? When to get medical care Call your healthcare provider right away??if any of these occur: ??? Frequent falls ??? The person refuses to eat or drink ??? Headache or nausea that gets worse, or repeated vomiting after a fall ??? Unexplained fever of 100.4?? F (38.0?? C) or higher, or as advised ?? Call 911 Call 911 if any of these occur: ??? Slurred speech, or trouble speaking, walking, or seeing ??? Fainting spell or dizziness ??? Seizure symptoms???(these include staring spells, lip-smacking, twitching, or sudden changes in mental status) ??? Violent behavior (call police) or behavior becomes too hard to manage at home ??? Increased drowsiness, or failure to respond normally ?? Last Reviewed Date: 2021 ?? [id number] The [employer]. All rights reserved. This information is not intended as a substitute for professional medical care. Always follow your healthcare professional's instructions. ?? Patient Care team information Care Team Personnel Name: Ashley Thorne RN Position: [facility] RN Member Role: Primary Care Nurse Name: Caroline Conklin RN Position: [facility] RN Member Role: Primary Care Nurse Name: Najma Park RN Position: [facility] RN Member Role: Primary Care Nurse Name: Fani Hong RN Position: [facility] RN Member Role: Primary Care Nurse Name: Carolyn Rudd RN Position: [facility] RN Member Role: Primary Care Nurse Name: Alana Franklin RN Position: S RN Member Role: Primary Care Nurse Name: Alee Gonzalez RN Position: [facility] RN Member Role: Primary Care Nurse Name: Eloina Eddy MD Position: [facility] Outreach Member Role: PCP Address: Address: [address] [place] [id number]- Care Team Related Persons Name: CLAY MCKEON Address: home [address] [place] [address]
--- OUTSIDE RECORDS SUMMARY | 2024-02-09 08:26 | XMS_ITS | Continuity of Care Document ---
Author Organization [facility] Address [address] [place] [address]- Care Team Providers Care Expeller Worker Name Role Phone Brandon-Rupesh LEROY, Joy Primary Care Physicia n Encounter [facility] [place] Date(s): 11/14/19 - 11/24/19 [facility] [address] [place] [id number]- [facility] Attending Physician: Colby Abreu Admitting Physician: AdmtrColby Referring Physician: Admtr Ar8 Allergies, Adverse Reactions, Alerts Substance Reaction Severity [...] Status Inform ant Aneurysm(Confirmed) Active Pain(Confirmed) Active Social History Social History Type Response Smoking Status Never (less than 100 in lifetime) entered on: 11/13/19 Sex
--- NOTE | 2024-02-09 14:45 | HO.PM.IMPN ---
Subjective Subjective Date of Service: 02/10/24 Interval History: Being followed for acute mental status change, lethargy and hypernatremia, with history of dementia, 3-4 day history of diarrhea that stopped 2 days ago. Patient remains lethargic but arousable, answered appropriately to questions briefly. Review of Systems Unable to obtain due to mental status Physical Exam Vital Signs: Vital Signs: Last Vital Signs Temp 97.7 F 02/09/24 07:38 Pulse 84 02/09/24 07:38 Resp 17 02/09/24 07:38 BP 167/85 H 02/09/24 07:38 Pulse Ox 93 02/09/24 07:38 O2 Del Method Room Air 02/09/24 07:38 BMI result Body Mass Index 21.1 Const: Other: General somnolent, easily arousable, in no acute distress. Neck supple no JVD. CVS regular rate rhythm, Respiratory lungs clear to auscultation, no respiratory distress, no wheeze, no rhonchi. Gastrointestinal abdomen soft, bowel sounds audible, nondistended, no guarding , no rigidity. Extremities no edema. Neuro moving all 4 extremity, speech clear. Skin no rash Objective Data Active Medications Acetaminophen (Acetaminophen 325 Mg Tablet) 650 mg PO Q6H PRN PRN Reason: Pain, Mild (Pain Scale 1-3), fever or headache Amlodipine Besylate (Amlodipine Besylate 5 Mg Tablet) 5 mg PO DAILY@0800 [facility]; Protocol Last Admin: 02/09/24 10:08 Dose: Not Given Documented By: TAL Non-Admin Reason: NPO Calcium Carbonate (Calcium Carbonate 750 Mg Tab.Chew) 750 mg PO Q4H PRN PRN Reason: Heartburn Donepezil HCl (Donepezil Hcl 10 Mg Tablet) 10 mg PO BEDTIME [facility] Enoxaparin Sodium (Enoxaparin Sodium 40 Mg/0.4 Ml Syringe) 40 mg SUBCUT Q24H [facility] Last Admin: 02/08/24 19:40 Dose: 40 mg Documented By: OLGA Folic Acid (Folic Acid 1 Mg Tablet) 1 mg PO SUMOWETHFRSA@0800 [facility] Last Admin: 02/09/24 10:08 Dose: Not Given Documented By: TAL Non-Admin Reason: NPO Potassium Chloride/Dextrose (Kcl 20 Meq In 5 % Dextrose) 20 meq in 1,000 mls @ 125 mls/hr IVCONT .Q8H [facility] Last Admin: 02/09/24 07:47 Dose: 125 mls/hr Documented By: TAL Magnesium Hydroxide (Milk Of Magnesia 30 Ml Oral.Susp) 30 ml PO DAILY PRN PRN Reason: Constipation Melatonin (Melatonin 3 Mg Tablet) 3 mg PO BEDTIME PRN PRN Reason: Insomnia Multivitamins/Vitamin C (Multivitamin Tablet) 1 tab PO DAILY@0800 [facility] Last Admin: 02/09/24 10:08 Dose: Not Given Documented By: TAL Non-Admin Reason: NPO Ondansetron HCl (Ondansetron Hcl 4 Mg/2 Ml Vial) 4 mg IVPUSH Q8H PRN PRN Reason: Nausea and Vomiting Sodium Chloride (0.9 % Sodium Chloride Flush 3 Ml Syringe) 3 ml IVFLUSH QSHIFT [facility] Last Admin: 02/09/24 07:24 Dose: Not Given Documented By: TAL Non-Admin Reason: IV Running Labs 02/09/24 05:02 02/10/24 07:45 Labs: Laboratory Results - last 24 hr 02/08/24 02/08/24 02/08/24 14:16 17:27 21:26 MCV MCH MCHC RDW Plt Count MPV Immature Gran % (Auto) Neut % (Auto) Lymph % (Auto) Pettis % (Auto) Eos % (Auto) Baso % (Auto) Lymph # (Auto) Pettis # (Auto) Eos # (Auto) Baso # (Auto) Abs Immat Gran (auto) Absolute Neuts (auto) Absolute Nucleated RBC Nucleated RBC % (auto) Anion Gap 14 Estim Creat Clear Calc Estimated GFR Random Glucose Calcium Total Bilirubin AST ALT Alkaline Phosphatase Troponin I High Sens 94.1 H* D 115.6 H* 99.9 H* Total Protein Albumin Influenza Type A (PCR) NEGATIVE Influenza Type B (PCR) NEGATIVE RSV RNA Qual (PCR) NEGATIVE SARS-CoV-2 RNA (RT-PCR) NEGATIVE 02/09/24 05:02 MCV 101.4 H MCH 33.2 H MCHC 32.7 RDW 15.5 Plt Count 59 L MPV 12.3 Immature Gran % (Auto) 0.5 H Neut % (Auto) 69.4 Lymph % (Auto) 19.4 L Pettis % (Auto) 8.4 Eos % (Auto) 1.8 Baso % (Auto) 0.5 Lymph # (Auto) 1.2 Pettis # (Auto) 0.5 Eos # (Auto) 0.1 Baso # (Auto) 0.0 Abs Immat Gran (auto) 0.03 Absolute Neuts (auto) 4.2 Absolute Nucleated RBC 0.020 H Nucleated RBC % (auto) 0.3 H Anion Gap 10 L Estim Creat Clear Calc 42.6 Estimated GFR 56 Random Glucose 124 H Calcium 8.7 D Total Bilirubin 2.3 H AST 43 H ALT 29 Alkaline Phosphatase 66 Troponin I High Sens Total Protein 7.0 Albumin 2.2 L Influenza Type A (PCR) Influenza Type B (PCR) RSV RNA Qual (PCR) SARS-CoV-2 RNA (RT-PCR) Assessment and Plan (1) Acute dehydration: Status: Acute (2) Dementia: Status: Acute (3) Hypernatremia: Status: Acute Plan 74-year-old female presents from local SNF with mental status changes that was preceded by several days of diarrhea. Was given 1 L of fluid at sniff but mental status did not improve and transferred to [facility]. Admission labs demonstrated severe hypernatremia . 1. Metabolic encephalopathy secondary to hypernatremia -free water deficit calculated to approximately 4 L. continue IV D5W follow BMP -keep NPO until mentation improves. 2. Dementia -will resume home medication once more awake, on Aricept 10 mg , trazodone 25 mg t.i.d. and as needed. 3. Acute hypokalemia will replace and follow labs. 4. Hypertension due to lethargy unable to take by mouth medication will give IV hydralazine low-dose and follow BP. 5. Elevated total bili/AST question chronic, no prior lab or imaging studies available will call [facility] and obtain old records. DNR DNI [place] Requires continued inpatient hospitalization for free water repletion to correct hypernatremia and reverse metabolic encephalopathy. This can not be achieved a lesser acute setting. Quality Stroke Does the patient have a stroke diagnosis?: No VTE Prior VTE?: No VTE Risk Level:: Medical - moderate - high VTE Device Contraindication: Treatment Not Indicated VTE Drug Contraindication: N/A - Med Ordered
[2024-02-09 15:20] VITALS: BP 140/90; PULSE 69; RESP 17; TEMP 36.5; O2SAT 97
[2024-02-09] MEDS: hydrALAZINE HCl 20 MG/ML VIAL 5 MG IVPUSH (15:23)
[2024-02-09] MEDS: Potassium Chloride/H20 10 MEQ/100 ML PIGGYBACK 100 MEQ IV (15:25)
--- NOTE | 2024-02-09 16:04 | MHC.CM.PN ---
PATIENT W/ DX DEMENTIA. PALLETIZER OPERATOR COMPLETED W/ SON/HCP CLAY. IMM VERBALLY DELIVERED. COPY LEFT AT BEDSIDE PER REQUEST. PATIENT FROM [facility] @ [facility] W/ A WALKER. PCP GERALDINE MENDEZ DP: RETURN TO LT @ [facility] VIA [facility]LS. CM WILL CONTINUE TO FOLLOW.
[2024-02-09] MEDS: Enoxaparin Sodium 40 MG/0.4 ML SYRINGE SUBCUT (17:30)
[2024-02-09 19:36] VITALS: BP 148/77; PULSE 73; RESP 15; TEMP 36.1; O2SAT 98
[2024-02-09 23:25] LABS: Appearance Urine Clear; Color Urine Yellow; Glucose Urine UA Negative (Negative); Leukocyte Esterase Urine Trace (Negative); Nitrite Urine Negative (Negative); PH 7.5 (5.0-9.0); Specific Gravity - Urine 1.015 (1.005-1.025); UMIC TRIGGER UACC YES; Urine Blood Negative (Negative); Urine Ketones Negative (Negative); Urine Protein Negative (Neg-Trace)
[2024-02-09 23:47] LABS: Bacteria Urine None Seen (None Seen); Hyaline Casts Urine 0-2 /LPF (0-2); RBC Urine 0-2 /HPF (0-2); Squamous Epithelial Cell Urine 0-2 /HPF (0-2); WBC Urine 0-5 /HPF (0-5)
[2024-02-10] MEDS: KCl 20 mEq in 5 % Dextrose 20 MEQ/1,000 ML IV.SOLN 125 MEQ IVCONT ×2 (00:35→08:43)
[2024-02-10 03:34] VITALS: BP 163/89; PULSE 69; RESP 15; TEMP 36.1; O2SAT 99
[2024-02-10 08:00] VITALS: BP 142/90; PULSE 78; RESP 16; TEMP 36.2; O2SAT 99
[2024-02-10 09:49] LABS: Alanine Aminotransferase 28 U/L (0-31); Albumin Level 2.4 g/dL (3.5-5.0); Alkaline Phosphatase 75 U/L (39-117); Anion Gap 12 (12-20); Aspartate Amino Transferase 44 U/L (5-31); Bilirubin Total 3.6 mg/dL (0.0-1.0); Blood Urea Nitrogen 13 mg/dL (9-16); Calcium 8.3 mg/dL (8.4-10.2); Carbon Dioxide 22 mmol/L (22-29); Chloride 114 mmol/L (96-108); Creatinine Clr Calc Pharmacy 48.6; Estimated Glomerular Filt Rate > 60; Glucose Random 81 mg/dL (60-115); Potassium 3.4 mmol/L (3.3-5.1); Sodium 145 mmol/L (135-145); Total Protein 7.1 g/dL (6.5-8.0)
[2024-02-10] MEDS: KCl 20 mEq in 5 % Dex/Lact Rin 20 MEQ/1,000 ML IV.SOLN 100 MEQ IVCONT ×2 (11:29→21:29)
--- NOTE | 2024-02-10 14:17 | P.PNIM_ITS ---
Subjective Subjective Date of Service: 02/10/24 Interval History: Being followed for acute encephalopathy/hypernatremia. Patient more awake alert answering questions appropriately, but refusing to eat. Physical Exam 2 Vital Signs: Vital Signs: Last Vital Signs Temp 97.1 F 02/10/24 08:00 Pulse 78 02/10/24 08:00 Resp 16 02/10/24 08:00 BP 142/90 H 02/10/24 08:00 Pulse Ox 99 02/10/24 08:00 O2 Del Method Room Air 02/10/24 08:00 BMI result Body Mass Index 21.1 Objective Data Active Medications Acetaminophen (Acetaminophen 325 Mg Tablet) 650 mg PO Q6H PRN PRN Reason: Pain, Mild (Pain Scale 1-3), fever or headache Amlodipine Besylate (Amlodipine Besylate 5 Mg Tablet) 5 mg PO DAILY@0800 [facility]; Protocol Last Admin: 02/10/24 08:49 Dose: Not Given Documented By: TAL Non-Admin Reason: NPO Calcium Carbonate (Calcium Carbonate 750 Mg Tab.Chew) 750 mg PO Q4H PRN PRN Reason: Heartburn Donepezil HCl (Donepezil Hcl 10 Mg Tablet) 10 mg PO BEDTIME [facility] Last Admin: 02/09/24 21:03 Dose: Not Given Documented By: MAICOL Non-Admin Reason: pt lethargic Enoxaparin Sodium (Enoxaparin Sodium 40 Mg/0.4 Ml Syringe) 40 mg SUBCUT Q24H [facility] Last Admin: 02/09/24 17:30 Dose: 40 mg Documented By: ALTHEA Folic Acid (Folic Acid 1 Mg Tablet) 1 mg PO SUMOWETHFRSA@0800 [facility] Last Admin: 02/10/24 08:50 Dose: Not Given Documented By: TAL Non-Admin Reason: NPO Potassium Cl/Dextrose/Lact Ringer's (Kcl 20 Meq In 5 % Dex/Lact Rin) 20 meq in 1,000 mls @ 100 mls/hr IVCONT .Q10H [facility] Last Admin: 02/10/24 11:29 Dose: 100 mls/hr Documented By: TAL Loperamide HCl (Loperamide Hcl 2 Mg Capsule) 2 mg PO Q6H PRN PRN Reason: Diarrhea Magnesium Hydroxide (Milk Of Magnesia 30 Ml Oral.Susp) 30 ml PO DAILY PRN PRN Reason: Constipation Melatonin (Melatonin 3 Mg Tablet) 3 mg PO BEDTIME PRN PRN Reason: Insomnia Multivitamins/Vitamin C (Multivitamin Tablet) 1 tab PO DAILY@0800 [facility] Last Admin: 02/10/24 08:50 Dose: Not Given Documented By: TAL Non-Admin Reason: NPO Ondansetron HCl (Ondansetron Hcl 4 Mg/2 Ml Vial) 4 mg IVPUSH Q8H PRN PRN Reason: Nausea and Vomiting Sodium Chloride (0.9 % Sodium Chloride Flush 3 Ml Syringe) 3 ml IVFLUSH QSHIFT [facility] Last Admin: 02/10/24 08:41 Dose: Not Given Documented By: TAL Non-Admin Reason: IV Running Labs 02/09/24 05:02 02/10/24 07:45 Labs: Laboratory Results - last 24 hr 02/09/24 02/10/24 23:05 07:45 Hold Purple Top SEE NOTE Anion Gap 12 Estim Creat Clear Calc 48.6 Estimated GFR > 60 Random Glucose 81 Calcium 8.3 L Total Bilirubin 3.6 H AST 44 H ALT 28 Alkaline Phosphatase 75 Total Protein 7.1 Albumin 2.4 L Urine Color Yellow Urine Appearance Clear Urine pH 7.5 Ur Specific [place] 1.015 Urine Protein Negative Urine Glucose (UA) Negative Urine Ketones Negative Urine Blood Negative Urine Nitrite Negative Ur Leukocyte Esterase Trace H Urine RBC 0-2 Urine WBC 0-5 Ur Squamous Epith Cells 0-2 Urine Bacteria None Seen Hyaline Casts 0-2 Assessment and Plan (1) Acute dehydration: Status: Acute (2) Dementia: Status: Acute (3) Hypernatremia: Status: Acute Plan 74-year-old female presents from local SNF with mental status changes that was preceded by several days of diarrhea. Was given 1 L of fluid at sniff but mental status did not improve and transferred to [facility]. Admission labs demonstrated severe hypernatremia . 1. Metabolic encephalopathy likely secondary to hypernatremia -hypernatremia resolved patient more awake alert but refusing to eat and get out of bed, obtain ammonia level. Will change IV fluid to D5 Ringer lactate continue to monitor BMP closely Will place on diet with one-to-one feed patient was on regular/ thin diet. 2. Alzheimer's Dementia no behavioral issues noted -will resume Aricept 10 mg , and hold trazodone 25 mg t.i.d. scheduled and as needed for side effect of hepatotoxicity and sedation. 3. Acute hypokalemia repleted 4. Hypertension few high blood pressure readings , resume amlodipine if unable to tolerate by mouth, will treat with IV hydralazine prn. 5. Elevated total bili/AST question chronic, no prior lab or imaging studies available , spoke with son he is not aware of underlying liver disease, he denies history of alcohol or drug abuse. Will try to obtain old records from [facility], continue to monitor LFTs, avoid hepatotoxins, will obtain abdominal ultrasound and hepatitis serology. DNR DNI [place] Requires continued inpatient hospitalization for free water repletion to correct hypernatremia and reverse metabolic encephalopathy. This can not be achieved a lesser acute setting. Quality Stroke Does the patient have a stroke diagnosis?: No VTE Prior VTE?: No VTE Risk Level:: Medical - moderate - high VTE Device Contraindication: Treatment Not Indicated VTE Drug Contraindication: N/A - Med Ordered
[2024-02-10 15:14] VITALS: BP 136/90; PULSE 75; RESP 14; TEMP 36; O2SAT 96
[2024-02-10 15:52] LABS: Ammonia 52 umol/L (13-55)
--- NOTE | 2024-02-10 15:55 | MHC.CM.PN ---
EMR REVIEWED, PT IMPROVING AND IS MORE AWAKE/ALERT PER HOSPITALIST HOWEVER IS NOT EATING, NO PLAN FOR DC AT THIS TIME, PLAN FOR PT TO RETURN TO LTC AT [facility] ONCE MEDICALLY CLEARED, CM WILL CONT TO FOLLOW DC NEEDS.
[2024-02-10 16:21] LABS: HBc Num1 0.19 S/CO (0.00-0.79); HBsAGNum1 0.23 S/CO (0.00-0.99); Hepatitis A Antibody IgM 0.16 Index (0-0.79); Hepatitis B Core Antibody Nonreactive (Nonreactive); Hepatitis B Surface Antigen Negative (Negative); ~HepC Num1 0.16 S/CO (0.00-0.79); ~Hepatitis A Antibody IgM Nonreactive (Nonreactive); ~Hepatitis B Surface Antibody NONREACTIVE (Nonreactive); ~Hepatitis C Antibody Nonreactive (Nonreactive)
[2024-02-10] MEDS: Enoxaparin Sodium 40 MG/0.4 ML SYRINGE SUBCUT (17:34)
[2024-02-10] MEDS: Donepezil HCl 10 MG TABLET PO (19:32)
[2024-02-10 19:42] VITALS: BP 142/66; PULSE 78; RESP 18; TEMP 35.9; O2SAT 97
--- NOTE | 2024-02-10 20:30 | PC.NURSE ---
This RN assumed care at 1900, Pt AO to self, pt speech is mumbled/garbled, pt responds to verbal stimuli, rarely opens eyes. Pt denies pain at this time, redness noted bilaterally under breasts, abdominal folds, and coccyx. Respirations even an unlabored. BSx4: no pain with palpation. Camera in the room. Pt resting quietly with no apparent distress. Meds given per MAR
[2024-02-10] MEDS: 0.9 % Sodium Chloride Flush 3 ML SYRINGE IVFLUSH (21:30)
[2024-02-11 03:22] VITALS: BP 126/69; PULSE 65; RESP 18; TEMP 36; O2SAT 98
[2024-02-11 06:47] LABS: Alanine Aminotransferase 26 U/L (0-31); Albumin Level 1.9 g/dL (3.5-5.0); Alkaline Phosphatase 67 U/L (39-117); Anion Gap 10 (12-20); Aspartate Amino Transferase 57 U/L (5-31); Bilirubin Direct 0.3 mg/dL (0.0-0.5); Bilirubin Total 2.6 mg/dL (0.0-1.0); Blood Urea Nitrogen 12 mg/dL (9-16); Calcium 8.4 mg/dL (8.4-10.2); Carbon Dioxide 17 mmol/L (22-29); Chloride 122 mmol/L (96-108); Creatinine Clr Calc Pharmacy 49.1; Estimated Glomerular Filt Rate > 60; Glucose Random 95 mg/dL (60-115); Potassium 5.3 mmol/L (3.3-5.1); Sodium 144 mmol/L (135-145); Total Protein 6.4 g/dL (6.5-8.0)
[2024-02-11 07:36] VITALS: BP 145/94; PULSE 75; RESP 14; TEMP 36; O2SAT 96
[2024-02-11] MEDS: KCl 20 mEq in 5 % Dex/Lact Rin 20 MEQ/1,000 ML IV.SOLN 100 MEQ IVCONT (08:08)
--- NOTE | 2024-02-11 08:18 | PC.NURSE ---
Pt, is lethargic, unable to follow commands or take any of her pills this am, including blood pressure medicine, provider notified.
--- NOTE | 2024-02-11 13:06 | HO.PM.IMPN ---
Subjective Subjective Date of Service: 02/11/24 Interval History: More awake alert this morning, talking in full sentences but not making sense, unable to provide meaningful answers likely due to underlying dementia, poor by mouth intake. Review of Systems Unable to obtain due to mental status. Physical Exam Vital Signs: Vital Signs: Last Vital Signs Temp 96.8 F 02/11/24 07:36 Pulse 75 02/11/24 07:36 Resp 14 02/11/24 07:36 BP 145/94 H 02/11/24 07:36 Pulse Ox 96 02/11/24 07:36 O2 Del Method Room Air 02/11/24 07:36 BMI result Body Mass Index 21.1 Const: Other: General awake alert sitting on bed in no acute distress Neck supple no JVD. CVS regular rate rhythm, Respiratory lungs clear to auscultation, no respiratory distress, no wheeze, no rhonchi. Gastrointestinal abdomen soft, bowel sounds audible, non distended, no guarding , no rigidity. Extremities no edema. Neuro moving all 4 extremity, speech clear, verbalizing not making sense. Skin no rash Psych poor insight Objective Data Active Medications Acetaminophen (Acetaminophen 325 Mg Tablet) 650 mg PO Q6H PRN PRN Reason: Pain, Mild (Pain Scale 1-3), fever or headache Amlodipine Besylate (Amlodipine Besylate 5 Mg Tablet) 5 mg PO DAILY@0800 [facility]; Protocol Last Admin: 02/11/24 08:15 Dose: Not Given Documented By: ANGELICA Non-Admin Reason: lethargic, unable to swallow Calcium Carbonate (Calcium Carbonate 750 Mg Tab.Chew) 750 mg PO Q4H PRN PRN Reason: Heartburn Donepezil HCl (Donepezil Hcl 10 Mg Tablet) 10 mg PO BEDTIME [facility] Last Admin: 02/10/24 19:32 Dose: 10 mg Documented By: HOOD Enoxaparin Sodium (Enoxaparin Sodium 40 Mg/0.4 Ml Syringe) 40 mg SUBCUT Q24H [facility] Last Admin: 02/10/24 17:34 Dose: 40 mg Documented By: TAL Folic Acid (Folic Acid 1 Mg Tablet) 1 mg PO SUMOWETHFRSA@0800 [facility] Last Admin: 02/11/24 08:16 Dose: Not Given Documented By: ANGELICA Non-Admin Reason: lethargic, unable to swallow Loperamide HCl (Loperamide Hcl 2 Mg Capsule) 2 mg PO Q6H PRN PRN Reason: Diarrhea Magnesium Hydroxide (Milk Of Magnesia 30 Ml Oral.Susp) 30 ml PO DAILY PRN PRN Reason: Constipation Melatonin (Melatonin 3 Mg Tablet) 3 mg PO BEDTIME PRN PRN Reason: Insomnia Multivitamins/Vitamin C (Multivitamin Tablet) 1 tab PO DAILY@0800 [facility] Last Admin: 02/11/24 08:16 Dose: Not Given Documented By: ANGELICA Non-Admin Reason: lethargic, unable to swallow Ondansetron HCl (Ondansetron Hcl 4 Mg/2 Ml Vial) 4 mg IVPUSH Q8H PRN PRN Reason: Nausea and Vomiting Sodium Chloride (0.9 % Sodium Chloride Flush 3 Ml Syringe) 3 ml IVFLUSH QSHIFT [facility] Last Admin: 02/11/24 08:09 Dose: Not Given Documented By: ANGELICA Non-Admin Reason: IV Running Labs 02/09/24 05:02 02/11/24 05:50 Labs: Laboratory Results - last 24 hr 02/10/24 02/11/24 15:35 05:50 Hold Purple Top SEE NOTE Anion Gap 10 L Estim Creat Clear Calc 49.1 Estimated GFR > 60 Random Glucose 95 Calcium 8.4 Total Bilirubin 2.6 H Direct Bilirubin 0.3 AST 57 H ALT 26 Alkaline Phosphatase 67 Ammonia 52 Total Protein 6.4 L Albumin 1.9 L Hepatitis A IgM Ab Nonreactive Hep Bs Antigen Negative Hep Bs Antibody NONREACTIVE Hep B Core Total Ab Nonreactive Hepatitis C Ab (EIA) Nonreactive Assessment and Plan (1) Acute dehydration: Status: Acute (2) Dementia: Status: Acute (3) Hypernatremia: Status: Acute Plan 74-year-old female presents from local SNF with mental status changes that was preceded by several days of diarrhea. Was given 1 L of fluid at sniff but mental status did not improve and transferred to [facility]. Admission labs demonstrated severe hypernatremia . 1. Metabolic encephalopathy likely secondary to hypernatremia seems to be at baseline awake alert, pleasantly confused spoke with son patient has Alzheimer's dementia, at residential since September, ambulate with walker hypernatremia resolved , poor by mouth intake DC IV fluids, follow BMP Continue one-to-one feed, advance diet to regular/ thin diet, ensure t.i.d.. Out of bed to chair and ambulate as tolerated 2. Alzheimer's Dementia no behavioral issues noted -will resume Aricept 10 mg , and hold trazodone 25 mg t.i.d. scheduled and as needed for side effect of hepatotoxicity and sedation. 3. Acute hypokalemia repleted, now mild acute hyperkalemia likely hemolyzed specimen will follow BMP 4. Hypertension stable BP continue amlodipine 5. Elevated total bili/AST question chronic, no prior lab or imaging studies available , spoke with son he is not aware of underlying liver disease, he denies history of alcohol or drug abuse. Made multiple attempts to obtain labs from , stable LFTs, normal ammonia level, negative hepatitis AB and C serology Since patient asymptomatic will hold further workup DNR SANDRA Baylee Requires continued inpatient hospitalization for free water repletion to correct electrolyte abnormalities. Quality Stroke Does the patient have a stroke diagnosis?: No VTE Prior VTE?: No VTE Risk Level:: Medical - moderate - high VTE Device Contraindication: Treatment Not Indicated VTE Drug Contraindication: N/A - Med Ordered
[2024-02-11] MEDS: 0.9 % Sodium Chloride Flush 3 ML SYRINGE IVFLUSH ×2 (15:17→19:16)
[2024-02-11 15:54] VITALS: BP 139/68; PULSE 79; RESP 20; TEMP 36; O2SAT 99
[2024-02-11] MEDS: Enoxaparin Sodium 40 MG/0.4 ML SYRINGE SUBCUT (17:13)
[2024-02-11] MEDS: Donepezil HCl 10 MG TABLET PO (19:13)
[2024-02-11 20:00] VITALS: BP 142/74; PULSE 80; RESP 18; TEMP 36.4; O2SAT 97
[2024-02-11] MEDS: Melatonin 3 MG TABLET PO (22:39)
[2024-02-11] MEDS: Acetaminophen 325 MG TABLET 650 MG PO (22:43)
[2024-02-12 04:00] VITALS: BP 126/61; PULSE 72; RESP 18; TEMP 36.3; O2SAT 96
[2024-02-12 06:33] LABS: Anion Gap 10 (12-20); Blood Urea Nitrogen 17 mg/dL (9-16); Calcium 8.8 mg/dL (8.4-10.2); Carbon Dioxide 19 mmol/L (22-29); Chloride 123 mmol/L (96-108); Estimated Glomerular Filt Rate > 60; Glucose Random 80 mg/dL (60-115); Potassium 4.1 mmol/L (3.3-5.1); Sodium 148 mmol/L (135-145)
[2024-02-12 07:03] LABS: Folate 8.4 ng/mL (> or = 4.0); Vitamin B12 864 pg/mL (200-900)
[2024-02-12 07:51] VITALS: BP 122/68; PULSE 71; RESP 18; TEMP 36.4; O2SAT 97
[2024-02-12] MEDS: 0.9 % Sodium Chloride Flush 3 ML SYRINGE IVFLUSH (09:21)
[2024-02-12] MEDS: Dextrose 5 % 1,000 ML 100 ML IVCONT (09:21)
[2024-02-12] MEDS: Multivitamin TABLET 1 TAB PO (09:22)
[2024-02-12 09:25] VITALS: BP 122/70
[2024-02-12] MEDS: amLODIPine Besylate 5 MG TABLET PO (09:25)
[2024-02-12] MEDS: Folic Acid 1 MG TABLET PO (09:29)
[2024-02-12 13:53] LABS: Anion Gap 11 (12-20); Blood Urea Nitrogen 18 mg/dL (9-16); Calcium 8.7 mg/dL (8.4-10.2); Carbon Dioxide 17 mmol/L (22-29); Chloride 118 mmol/L (96-108); Creatinine Clr Calc Pharmacy 42.2; Estimated Glomerular Filt Rate 55; Glucose Random 180 mg/dL (60-115); Potassium 3.5 mmol/L (3.3-5.1); Sodium 142 mmol/L (135-145)
--- NOTE | 2024-02-12 14:09 | P.DS_ITS ---
DS: Providers Provider Date of Service: 02/12/24 Date of admission: 02/08/24 16:08 Primary care physician: GERALDINE MENDEZ DS: Diagnosis Discharge Diagnosis (1) Acute dehydration: Status: Acute (2) Dementia: Status: Acute (3) Hypernatremia: Status: Acute DS: Summary Hospital Course Hospital Course: History of presenting illness: Date of Service: 02/08/24 Chief Complaint: Mental status changes All information gleaned from [facility] transfer sheet. 74-year-old female local resident of [facility] with a history of dementia presents after 3 or 4 days of diarrhea that stopped approximately 2 days ago. Over that time she became more confused and ultimately lethargic prompting transfer into [facility]. Initial labs significant for sodium of 162 and a chloride of 132. She received a L of normal saline in the emergency room and request for admission was undertaken. Hospital course: 74-year-old female presents from local [facility] with mental status changes that was preceded by several days of diarrhea, Was given 1 L of fluid at [facility] but mental status did not improve and transferred to [facility]. In ED patient noted to have hypernatremia therefore admitted to [facility] with a diagnosis of hypernatremia sodium 162 on admission and metabolic encephalopathy , patient treated with IV fluids, hypernatremia resolved patient noted to have decreased by mouth intake recommend to push by mouth fluid and recommend one-to-one feed and ensure t.i.d., patient also noted to have mild hypokalemia , repleted repeat potassium 3.5 , Patient initial was noted to be somnolent therefore trazodone discontinued, patient awake alert, seems to be at baseline therefore being discharged back to rehab facility, patient noted to have elevated total bili, question chronic, spoke with son he has not aware of underlying liver disease, total bili remains elevated but stable, ALT normal with mildly elevated AST, normal ammonia level, negative hepatitis A, B and C serology, since patient is asymptomatic will hold further workup, patient on methotrexate that can cause hepatotoxicity recommend to follow-up with primary care physician and repeat LFTs in 1 week. . In regard to hypertension recommend to continue amlodipine. Time Attestation Discharge Coordination Time (in mins): 38 Quality: Safe Use of Opioids Does Pt have an Active Cancer Diagnosis on the Problem List?: No Quality: Stroke Does the patient have a stroke diagnosis?: No Physical Exam Vital Signs: Vital Signs: Last Vital Signs Temp 97.6 F 02/12/24 07:51 Pulse 71 02/12/24 07:51 Resp 18 02/12/24 07:51 BP 122/70 02/12/24 09:25 Pulse Ox 97 02/12/24 07:51 O2 Del Method Room Air 02/12/24 07:51 BMI result Body Mass Index 21.1 Const: Other: General awake alert ,in no acute distress Neck supple no JVD. CVS regular rate rhythm, Respiratory lungs clear to auscultation, no respiratory distress, no wheeze, no rhonchi. Gastrointestinal abdomen soft, bowel sounds audible, non distended, no guarding , no rigidity. Extremities no edema. Neuro moving all 4 extremity, speech clear Skin no rash Psych poor insight DS: Data Data Completed and Pending Labs on day of discharge: Laboratory Results - last 24 hr 02/12/24 02/12/24 05:49 13:33 Sodium 148 H 142 Potassium 4.1 D 3.5 Chloride 123 H 118 H Carbon Dioxide 19 L 17 L Anion Gap 10 L 11 L BUN 17 H 18 H Creatinine 0.86 0.98 Estim Creat Clear Calc 48.0 42.2 Estimated GFR > 60 55 Random Glucose 80 180 H Calcium 8.8 8.7 Vitamin B12 864 Folate 8.4 Discharge Plan Discharge Anticipated Discharge Date/Time: 02/12/24 14:00 Patient Disposition: Xfer SNF Discharge Diagnosis: Acute encephalopathy due to hypernatremia Referrals: GERALDINE MENDEZ [Primary Care Provider] - 1 Week Discharge Medications: Continued sennosides [senna] 8.6 mg Tablet 17.2 mg PO DAILY@0800 polyethylene glycol 3350 17 gram Powder In Packet 17 g PO DAILY PRN (Reason: Constipation) donepezil [Aricept] 10 mg Tablet 10 mg PO BEDTIME melatonin 3 mg Tablet 3 mg PO BEDTIME PRN (Reason: Insomnia) amlodipine 5 mg Tablet 5 mg PO DAILY@0800 methotrexate sodium 2.5 mg Tablet 10 mg PO TU@0800 folic acid 1 mg Tablet 1 mg PO SUMOWETHFRSA@0800 multivitamin with minerals Tablet 1 tab PO DAILY@0800 Aquaphor Healing 41 % Ointment 1 appl TOPICAL BID PRN (Reason: itchyness) Calcium 600 + D(3) 600 mg-5 mcg (200 unit) Capsule 2 cap PO BID loperamide 2 mg Capsule 2 mg PO Q6H PRN (Reason: Diarrhea) trazodone 50 mg Tablet 25 mg PO BID PRN (Reason: Anxiety) hydrocortisone 2.5 % ointment 1 appl topical DAILY PRN (Reason: psoriasis) calcitriol 3 mcg/gram Ointment 1 appl TOPICAL BID acetaminophen 325 mg Tablet 650 mg PO DAILY magnesium hydroxide [Milk of Magnesia] 400 mg/5 mL Suspension 30 ml PO DAILY PRN (Reason: Constipation/ No Bm in3 days) bisacodyl 10 mg Suppository 10 mg PA DAILY PRN (Reason: milk of magnesia not effective) Fleet Enema 19-7 gram/118 mL Enema 118 ml PA DAILY PRN (Reason: Ducolax not effective) Discontinued trazodone 50 mg Tablet 25 mg PO TID@0800,1400,1999 Discharge Orders: Discharge Order (Routine); Ordered 02/12/24 Ordered By: Tarik Coe Diet: Advance to usual diet Activity on Discharge: As tolerated Stand Alone Forms: Patient Portal Discharge page Print Language: Polish Care Plan Goals: Please push by mouth fluids/assist in all feeds/Ensure t.i.d. Hypernatremia resolved Trazodone discontinued due to somnolence and hepatotoxicity side effect On methotrexate that can also cause hepatotoxicity Health Concerns: Elevated LFTs recommend follow-up liver panel in 1 week Plan of Treatment: Outpatient follow-up with primary care physician Assessment: As above
[2024-02-12] MEDS: Acetaminophen 325 MG TABLET 650 MG PO (14:21)
--- NOTE | 2024-02-12 15:56 | MHC.CM.PN ---
PT WILL DC TODAY BACK TO [facility] AT 1700 HOURS VM LEFT FOR PTS SON, CLAY,
--- NOTE | 2024-02-12 15:59 | PC.NURSE ---
Report called to Danay Peña, talked to the receiving Nurse.
[2024-02-12 16:00] VITALS: BP 131/67; PULSE 84; RESP 18; TEMP 36.6; O2SAT 98
== END 2024-02-12 17:38 | disposition skilled nursing facility (03) | DRG 640 ==
LOC: HO.ED 16:49 → HO.EDOVER 16:55 → HO.S3 19:17
PROVIDERS: Admitting Provider Hospitalist; Emergency Provider Emergency Medicine; PCP Emergency Medicine; Visit Provider Hospitalist
DX: E87.0 Hyperosmolality and hypernatremia (principal); G93.41 Metabolic encephalopathy; Z66 Do not resuscitate; E86.0 Dehydration; I10 Essential (primary) hypertension; F03.B0 Unspecified dementia, moderate, without behavioral disturbance, psychotic disturbance, mood disturbance, and anxiety; E87.6 Hypokalemia; Z79.631 Long term (current) use of antimetabolite agent; Z79.899 Other long term (current) drug therapy
CPT/HCPCS: 0241U; 36415; 71045; 80048; 80053; 80076; 81001; 82140; 82248; 82607; 82746; 82803; 83690; 83735; 83880; 84484; 85025; 86140; 86704; 86706; 86709; 86803; 87340; 93005; 99285; J0360; J1650; J3480

== ENCOUNTER → 2024-02-08 13:37 | Outpatient (BNV) | payer MEDICARE, SELFPAY | PROVIDERS: Emergency Provider Emergency Medicine; PCP Emergency Medicine; Visit Provider Hospitalist | DX: E86.0 Dehydration (principal); F03.90 Unspecified dementia, unspecified severity, without behavioral disturbance, psychotic disturbance, mood disturbance, and anxiety; E87.0 Hyperosmolality and hypernatremia | CPT/HCPCS: 99223; 99232; 99233; 99239 ==

== ENCOUNTER → 2024-02-08 13:43 | Outpatient (BNV) | payer MEDICARE, SELFPAY | PROVIDERS: Emergency Provider Emergency Medicine; PCP Emergency Medicine; Visit Provider Internal Medicine Cardiovascular Disease | DX: R94.31 Abnormal electrocardiogram [ECG] [EKG] (principal) | CPT/HCPCS: 93010 ==